=== PATIENT | female | born 1960 | race Hispanic/Latino ===

== ENCOUNTER 2020-08-13 13:51 | Inpatient (IN) | payer OTHER, SELFPAY ==
--- NOTE | 2020-08-13 15:46 | Emergency Department Report ---
HPI - General Chief Complaint: Dizziness Time Seen by Provider: 08/13/20 15:20 - HPI HPI: Room 20 The patient is a 60-year-old female present with a chief complaint of dizziness. The patient states she was just sitting down when she began to feel dizzy and had blurred vision. The patient states she tried to take a nap and woke up and felt slightly better. EMS was called after the patient had a near syncopal episode at a [employer]. Per EMS the patient was satting 82% on room air and was hypotensive. Patient was placed 100% nonrebreather and now states she feels all right. Patient denied ever having shortness of breath or pain of any type. Patient denies fever or cough. ED Past Medical Hx - Past Medical History Hx Hypertension: Yes Additional medical history: lymphedema - Surgical History Additional Surgical History: graft R leg - Family History Family history: no significant - Social History Smoking Status: Never Smoker Substance Use Type: None (Denies illicit drug use) ED Review of Systems ROS: Stated complaint: SOB Other details as noted in HPI Constitutional: no symptoms reported Eyes: denies: eye pain ENT: denies: throat pain Respiratory: no symptoms reported Cardiovascular: denies: chest pain Endocrine: no symptoms reported Gastrointestinal: denies: abdominal pain Genitourinary: denies: dysuria Musculoskeletal: denies: back pain Neurological: denies: headache Physical Exam - Physical Exam Vital Signs: Vital Signs 08/13/20 08/13/20 14:06 14:24 Temperature 97.4 F L 99.0 F Pulse Rate 102 H 102 H Respiratory 32 H 20 Rate Blood Pressure 120/74 Blood Pressure 116/68 [Right] O2 Sat by Pulse 100 98 Oximetry Physical Exam: GENERAL: The patient is well-developed well-nourished female lying on stretcher appearing fatigued. [] HEENT: Normocephalic. Atraumatic. Extraocular motions are intact. Patient has moist mucous membranes. NECK: Supple. Trachea midline CHEST/LUNGS: Clear to auscultation. There is no respiratory distress noted. HEART/CARDIOVASCULAR: Regular. There is no tachycardia. There is no gallop rub or murmur. ABDOMEN: Abdomen is soft, nontender. Patient has normal bowel sounds. There is no abdominal distention. SKIN: There is no rash. There is no edema. There is no diaphoresis. NEURO: The patient is awake but appears lethargic. The patient is cooperative. The patient has normal speech MUSCULOSKELETAL: There is no evidence of acute injury. ED Course Vital Signs 08/13/20 08/13/20 14:06 14:24 Temperature 97.4 F L 99.0 F Pulse Rate 102 H 102 H Respiratory 32 H 20 Rate Blood Pressure 120/74 Blood Pressure 116/68 [Right] O2 Sat by Pulse 100 98 Oximetry - Consultations Consultation #1: 08/13/20 18:45 Vascular surgery paged 08/13/20 19:[address] Lovell-states cannot lyse if there is a thrombus in the left ventricle. Recommends stat echocardiogram to evaluate for left ventricle mural thrombus Consultation #2: 08/13/20 19:20 Cardiology paged 08/13/20 19:[address] Chandler- states unable to perform stat echo. ED Medical Decision Making - Lab Data Result diagrams: 08/13/20 16:30 08/13/20 18:02 - Radiology Data Radiology results: report reviewed (Chest x-ray), image reviewed (Chest x-ray) interpreted by me: Chest [id number]. No definite focal infiltrates. No pneumothorax [facility] [address] [place] [address] XRay Report Signed Patient: GELY DORAN MR#: [id number] 0 : 1960 Acct:[id number] Age/Sex: 60 / F ADM Date: 08/13/20 Loc: ED Attending Dr: Ordering Physician: GURINDER DUMONT MD Date of Service: 08/13/20 Procedure(s): XR chest 1V ap Accession Number(s): [id number] cc: GURINDER DUMONT MD Fluoro Time In Minutes: CHEST 1 VIEW INDICATION / CLINICAL INFORMATION: Hypoxia. COMPARISON: None available. FINDINGS: SUPPORT DEVICES: None. HEART / MEDIASTINUM: Enlarged cardiac silhouette LUNGS / PLEURA: Central pulmonary vascular congestion is noted. Mild bilateral perihilar pulmonary edema. No pneumothorax or pleural effusion. ADDITIONAL FINDINGS: No significant additional findings. IMPRESSION: 1. Findings consistent with congestive heart failure and mild bilateral perihilar pulmonary edema. Signer Name: Pio Ha MD Signed: 08/13/2020 4:22 PM Workstation Name: [id number] Transcribed By: Dictated By: PIO HA Electronically Authenticated By: PIO HA Signed Date/Time: 08/13/201621 DD/ 20 TD/TT: - Differential Diagnosis Pneumonia, CHF, PE, Critical care attestation.: If time is entered above; I have spent that time in minutes in the direct care of this critically ill patient, excluding procedure time. ED Disposition Clinical Impression: Saddle pulmonary embolus, Multiple pulmonary emboli, Hypoxia Disposition: OP ADMIT IP TO THIS HOSP Is pt being admited?: Yes Does the pt Need Aspirin: No Condition: Serious Referrals: PRIMARY CARE,MD [Primary Care Provider] - 3-5 Days Time of Disposition: 19:47 (Hospitalist paged (Dr. Hernández))
[2020-08-13 16:16] LABS: ABG Base Excess 0.6 mmol/L (-2.0-3.0); ABG HCO3 25.3 mmol/L (20.0-26.0); ABG Methemoglobin 0.6 % (0.0-1.5); ABG Oxygen Saturation 81.5 % (95.0-99.0); ABG PCO2 40.7 mm Hg; ABG PH 7.411 pH Units (7.350-7.450); ABG PO2 43.5 mm Hg (80.0-90.0)
--- NOTE | 2020-08-13 16:26 | XRay Report ---
CHEST 1 VIEW INDICATION / CLINICAL INFORMATION: Hypoxia. COMPARISON: None available. FINDINGS: SUPPORT DEVICES: None. HEART / MEDIASTINUM: Enlarged cardiac silhouette LUNGS / PLEURA: Central pulmonary vascular congestion is noted. Mild bilateral perihilar pulmonary ed vane. No pneumothorax or pleural effusion. ADDITIONAL FINDINGS: No significant additional findings. IMPRESSION: 1. Findings consistent with congestive heart failure and mild bilateral perihilar pulmonary edema. Signer Name: Pio Duffy MD Signed: 08/13/2020 4:22 PM Workstation Name: [id number]
[2020-08-13 17:07] LABS: Basophils % (Auto) 0.3 % (0.0-1.8); Eosinophils % (Auto) 0.3 % (0.0-4.3); Hematocrit 37.3 % (30.3-42.9); Hemoglobin 12.1 gm/dl (10.1-14.3); Lymphocytes # (Auto) 2.3 K/mm3 (1.2-5.4); Lymphocytes % (Auto) 17.3 % (13.4-35.0); Mean Corpuscular HGB Conc 32 % (30-34); Mean Corpuscular Volume 89 fl (79-97); Monocytes # (Auto) 0.7 K/mm3 (0.0-0.8); Monocytes % (Auto) 5.3 % (0.0-7.3); Red Blood Count 4.18 M/mm3 (3.65-5.03); Red Cell Distribution Width 16.5 % (13.2-15.2)
[2020-08-13 17:12] LABS: Platelet Count 256 K/mm3 (140-440)
[2020-08-13 17:34] LABS: Alanine Aminotransferase 10 units/L (7-56); Albumin 3.6 g/dL (3.9-5); BUN/Creatinine Ratio 23; Blood Urea Nitrogen 21 mg/dL (7-17); Calcium 9.2 mg/dL (8.4-10.2); Hemolysis Index 167
[2020-08-13 17:52] LABS: Creatine Kinase MB 3.6 ng/mL (0.0-4.0)
--- NOTE | 2020-08-13 18:54 | Cat Scan Report ---
CT angio chest INDICATION: Hypoxia, dizziness. TECHNIQUE: All CT scans at this location are performed using CT dose reduction for ALARA by means of automated e xposure control. COMPARISON: None available. FINDINGS: No appreciable mediastinal, hilar or axillary adenopathy. No pleural fluid. No acute parenchymal dise ase. There are large filling defects in both main pulmonary arteries and their branches, consistent with e xtensive pulmonary emboli. In addition, there is a "saddle embolus" in the main pulmonary artery, dra saunders over the bifurcation. Contrast filled lumen of the left ventricle appears unusually small, with marked thickening of the ve ntricular "wall". Appearance is worrisome for mural thrombus in the left ventricle. IMPRESSION: 1. . Extensive pulmonary emboli, including a saddle embolus. 2. Questionable mural thrombus in the left ventricle. Echocardiogram may be helpful. This is a positive critical finding, noted at 1745 hours. Findings were discussed with Dr. Nixon in [facility] ER at 1748 hours. Signer Name: Rj Marie MD Signed: 08/13/2020 6:50 PM Workstation Name: [id number]
[2020-08-13] MEDS ORDERED: HEPARIN 10,000 UNITS/10 ML VIAL IV ONE (18:55)
[2020-08-13] MEDS: HEPARIN/ 0.45% NACL DRIP 25,000 UNIT/500 ML BAG IV SCH (19:53)
[2020-08-13] MEDS ORDERED: oxyCODONE /ACETAMINOPHEN 5-325MG TAB PO PRN (19:56)
[2020-08-13] MEDS ORDERED: ALBUTEROL 2.5 MG/3 ML NEBU IH PRN (19:56)
[2020-08-13] MEDS ORDERED: MORPHINE 2 MG/1 ML INJ IV PRN (19:56)
--- NOTE | 2020-08-13 19:56 | History and Physical Report ---
History of Present Illness Chief complaint: I got dizzy and short of breath and passed out History of present illness: 60 YO Female with Obesity Hypoventilation Syndrome, HTN, Lymphedema,Homelessness presents to ED for evaluation. Patient states that she was in her usual state of health and experienced shortness of breath while shopping and [employer]. Patient states that she felt a sudden onset of shortness of breath and dizziness. Patient subsequently lost consciousness. At [facility] witnessed the episode and notified EMS. EMS was notified and upon arrival the patient was found to be in distress with a pulse oximetry of 82%. The patient was also hypotensive with a systolic blood pressure in the 80s. Patient was placed on submental oxygen and transported to [facility] for further care and evaluation of the aforementioned symptoms. Patient seen and evaluated in the emergency department. All lab and imaging studies reviewed. Patient found to have bilateral pulmonary embolus complicated by acute hypoxemic respiratory failure, sepsis, acidosis. Patient initiated on therapeutic anticoagulation and admitted to [facility] due to increased risk of pulmonary decompensation. Vascular surgery team consulted in the emergency department. Cardiology team consulted in the emergency department. Echocardiogram is ordered and is pending at the time of admission. Patient denies fever, chills, chest pain, palpitation, productive cough, skin rash, recent ill contacts, or known exposure to COVID-19. No prior admission for review. No medication listed at time of admission for reconciliation. Past History Past Medical History: hypertension, other (See HPI) Past Surgical History: Other (Right leg graft) Social history: . denies: smoking, alcohol abuse, prescription drug abuse Family history: no significant family history (Reviewed) Medications and Allergies Allergies Allergy/AdvReac Type Severity Reaction Status Date / Time codeine AdvReac Nausea Verified 08/13/20 14:09 Active Meds: Active Medications Heparin Sodium/Sodium Chloride (Heparin/ 0.45% Nacl-25,000 Unit/500 Ml) 25,000 unit in 500 mls @ 30 mls/hr IV TITR ZIGGY; Protocol Review of Systems Constitutional: no weight loss, no weight gain, no fever, no chills Ears, nose, mouth and throat: no ear pain, no ear discharge, no decreased hearing, no nose pain, no nasal congestion Cardiovascular: shortness of breath, no chest pain, no orthopnea, no palpitations, no rapid/irregular heart beat Respiratory: shortness of breath, no cough with sputum, no excessive sputum Gastrointestinal: no abdominal pain, no nausea, no vomiting, no diarrhea, no change in bowel habits Genitourinary Female: no pelvic pain, no flank pain, no menorrhagia, no stress incontinence Rectal: no pain, no incontinence, no bleeding Musculoskeletal: no neck stiffness, no neck pain, no shooting arm pain, no arm numbness/tingling, no low back pain, no shooting leg pain Integumentary: no rash, no pruritis, no redness, no sores, no wounds Neurological: no transient paralysis, no paralysis, no weakness, no numbness, no tingling Psychiatric: no anxiety, no sleep disturbances, no change in libido Endocrine: no cold intolerance, no polyphagia, no excessive thirst, no polydipsia, no excessive sweating Hematologic/Lymphatic: no easy bruising, no easy bleeding, no lymphadenopathy Allergic/Immunologic: no urticaria, no wheezing, no persistent infections Exam - Constitutional Vitals: Temp Pulse Resp BP Pulse Ox 99.0 F 91 H 25 H 118/56 100 08/13/20 14:24 08/13/20 18:45 08/13/20 18:45 08/13/20 18:45 08/13/20 18:45 General appearance: Present: mild distress - EENT Eyes: Present: PERRL ENT: hearing intact, clear oral mucosa - Neck Neck: Present: supple, normal ROM - Respiratory Respiratory effort: normal Respiratory: bilateral: diminished, rhonchi - Cardiovascular Heart Sounds: Present: S1 & S2. Absent: rub, click - Extremities Extremities: pulses symmetrical, No edema Peripheral Pulses: within normal limits - Abdominal General gastrointestinal: Present: soft, non-tender, non-distended, normal bowel sounds Female genitourinary: Present: normal - Integumentary Integumentary: Present: clear, warm, dry - Musculoskeletal Musculoskeletal: gait normal, strength equal bilaterally - Psychiatric Psychiatric: appropriate mood/affect, intact judgment & insight - Neurologic Neurologic: CNII-XII intact, moves all extremities HEART Score - HEART Score Troponin: Troponin T < 0.010 ng/mL (0.00-0.029) 08/13/20 16:30 Results - Labs CBC & Chem 7: 08/13/20 19:46 10/01/20 18:02 Labs: Abnormal lab results 08/13/20 08/13/20 08/13/20 Range/Units 15:59 16:30 16:30 WBC 13.2 H (4.5-11.0) K/mm3 RDW 16.5 H (13.2-15.2) % Seg Neutrophils % 76.8 H (40.0-70.0) % Seg Neutrophils # 10.1 H (1.8-7.7) K/mm3 D-Dimer 8917.50 H (0-234) ng/mlDDU ABG pO2 43.5 L (80.0-90.0) mm Hg ABG O2 Saturation 81.5 L (95.0-99.0) % Oxyhemoglobin 80.1 L (95.0-99.0) % Potassium (3.6-5.0) mmol/L Carbon Dioxide (22-30) mmol/L BUN (7-17) mg/dL Glucose (65-100) mg/dL Albumin (3.9-5) g/dL 08/13/20 Range/Units 16:30 WBC (4.5-11.0) K/mm3 RDW (13.2-15.2) % Seg Neutrophils % (40.0-70.0) % Seg Neutrophils # (1.8-7.7) K/mm3 D-Dimer (0-234) ng/mlDDU ABG pO2 (80.0-90.0) mm Hg ABG O2 Saturation (95.0-99.0) % Oxyhemoglobin (95.0-99.0) % Potassium 5.7 H (3.6-5.0) mmol/L Carbon Dioxide 18 L (22-30) mmol/L BUN 21 H (7-17) mg/dL Glucose 103 H (65-100) mg/dL Albumin 3.6 L (3.9-5) g/dL Assessment and Plan - Patient Problems (1) Sepsis Current Visit: Yes Status: Acute Plan to address problem: Sepsis protocol: CBC, CMP, chest x-ray, urinalysis, IV fluid resuscitation therapy, monitor blood pressure every shift, maintain mean arterial pressure greater than or equal to 65, blood culture, empiric IV antibiotic therapy, serial lactic acid level. (2) Acute hypoxemic respiratory failure Current Visit: Yes Status: Acute Plan to address problem: Supplemental oxygen, CT chest, pulse oximetry, nebulizer therapy, noninvasive positive pressure ventilation as clinically indicated. Treatment saddle pulmonary embolism. (3) Metabolic acidosis Current Visit: Yes Status: Acute Plan to address problem: BMP, IV fluid resuscitation therapy, IV bicarbonate therapy, repeat BMP in a.m. (4) Obesity hypoventilation syndrome Current Visit: Yes Status: Acute Plan to address problem: Balanced diet, increase physical activity at discharge, outpatient bariatric surgery consultation. Outpatient pulmonary consultation for sleep study. (5) Saddle pulmonary embolus Current Visit: Yes Status: Acute Qualifiers: Chronicity: acute Acute cor pulmonale presence: without acute cor pulmonale Qualified Code(s): I26.92 - Saddle embolus of pulmonary artery without acute cor pulmonale Plan to address problem: Echocardiogram ordered and is pending at the time of admission, therapeutic anticoagulation, CTA chest, supplemental oxygen, pulse oximetry, supportive care. Vascular surgery service consulted further care as per vascular surgery team. (6) DVT prophylaxis Current Visit: Yes Status: Acute Plan to address problem: SCD to bilateral lower extremities while in bed, continue therapeutic anti coagulation. (7) Advance care planning Current Visit: Yes Status: Acute Plan to address problem: Disease education conducted, patient is full code, prognosis discussed, patient knowledges understanding and agreement with care plan, +30 minutes.
[2020-08-13] MEDS ORDERED: SODIUM BICARB 8.4% 50 MEQ/50 ML SYRINGE IV ONE ×2 (20:08→20:25)
[2020-08-13 20:10] LABS: Hematocrit 35.4 % (30.3-42.9); Hemoglobin 11.5 gm/dl (10.1-14.3)
[2020-08-13 20:22] LABS: INR 1.12 (0.87-1.13)
[2020-08-13 20:23] LABS: Partial Thromboplastin Time 30.2 Sec. (24.2-36.6)
[2020-08-13] MEDS ORDERED: ACETAMINOPHEN 325 MG TAB PO PRN (20:25)
[2020-08-13] MEDS ORDERED: SODIUM CHLORIDE 0.9% 1000 ML IV SOLN IV ONE (20:25)
[2020-08-13] MEDS ORDERED: HYDROmorphone 1 MG/1 ML INJ IV PRN (20:25)
--- NOTE | 2020-08-13 21:58 | Consultation ---
History of Present Illness - Reason for Consult Consult date: 08/13/20 Saddle Embolus Requesting physician: GURINDER DUMONT - History of Present Illness The patient is a 60-year-old female with a history of bilateral lower extremity lymphedema who states she was recently hospitalized at [place], for approximately 2 weeks, for management of dehydration and treatment of her lymphedema. She states she had a biologic skin graft placed on her right lower extremity during the hospitalization. After discharge she states she had been doing fairly well at home until 2 days ago when she was reaching for something in her wheelchair and states she fell and hit her head. She denies losing consciousness and did not think anything of it until the following day when she began experiencing nausea and dizziness. She thought she was just dehydrated so she drank fluids and took a nap, outside of the [employer] where she states she sat in the sun to get warm, however upon awaking she was still dizzy and started to experience blurry vision so EMS was called. Upon arrival to [facility] emergency department her oxygen saturations were in the low 80s. Her work-up included a d-dimer which was elevated in the [address] scan which revealed submassive bilateral pulmonary emboli with a saddle pulmonary embolus. In addition to the pulmonary embolus there was a suggestion of possible thrombus in the left ventricle. At this time she is on a heparin drip and feels somewhat better with her breathing. She denies any history of hemoptysis or hematemesis. She also denies any history of melena or bright red blood per rectum. She has no additional complaints at this time. Past History Past Medical History: hypertension, other (Bilateral lower extremity lymphedema) Past Surgical History: Other (Right lower extremity skin graft) Social history: . denies: smoking, alcohol abuse, prescription drug abuse Family history: no significant family history (Reviewed) Medications and Allergies Allergies Allergy/AdvReac Type Severity Reaction Status Date / Time codeine AdvReac Nausea Verified 08/13/20 14:09 Home Medications Medication Instructions Recorded Confirmed Last Taken Type No Known Home Medications [No 08/13/20 08/13/20 Unknown History Reported Home Medications] Active Meds: Active Medications Acetaminophen (Tylenol) 650 mg PO Q6H PRN PRN Reason: Pain, Mild (1-3) Albuterol (Proventil) 2.5 mg IH Q3HRT PRN PRN Reason: Shortness Of Breath Hydromorphone HCl (Dilaudid) 0.25 mg IV Q4H PRN PRN Reason: Pain, Moderate (4-6) Heparin Sodium/Sodium Chloride (Heparin/ 0.45% Nacl-25,000 Unit/500 Ml) 25,000 unit in 500 mls @ 30 mls/hr IV TITR ZIGGY; Protocol Last Admin: 08/13/20 19:53 Dose: 1,500 units/hr, 30 mls/hr Documented by: Cefepime HCl (Cefepime/Ns 2 Gm/100 Ml) 2 gm in 100 mls @ 200 mls/hr IV Q12HR ZIGGY; Protocol Morphine Sulfate (Morphine) 2 mg IV Q4H PRN PRN Reason: Pain , Severe (7-10) Oxycodone/Acetaminophen (Percocet 5/325) 1 tab PO Q6H PRN PRN Reason: Pain, Moderate (4-6) Sodium Chloride (Sodium Chloride Flush Syringe 10 Ml) 10 ml IV BID ZIGGY Sodium Chloride (Sodium Chloride Flush Syringe 10 Ml) 10 ml IV PRN PRN PRN Reason: LINE FLUSH Review of Systems All systems: negative Exam - Constitutional Vitals: Temp Pulse Resp BP Pulse Ox 99.0 F 86 20 118/56 100 08/13/20 14:24 08/13/20 20:45 08/13/20 20:45 08/13/20 20:45 08/13/20 20:45 General appearance: Present: no acute distress - Neck Neck: Present: supple - Respiratory Respiratory effort: normal - Cardiovascular Heart rate: 94 Rhythm: regular - Extremities Extremities: pulses intact (Bilateral dorsalis pedis pulses are intact), pulses symmetrical, normal temperature, abnormal (Massive bilateral lower extremity lymphedema. The patient had Tommy bandages on bilateral ankles that were removed and no wounds were identified.) - Abdominal General gastrointestinal: Present: soft, non-tender, non-distended Female genitourinary: Present: deferred - Rectal Rectal Exam: deferred - Integumentary Integumentary: Present: clear - Psychiatric Psychiatric: appropriate mood/affect, cooperative - Neurologic Neurologic: no focal deficits Results - Labs CBC & Chem 7: 08/14/20 02:45 08/14/20 02:45 Labs: Abnormal lab results 08/13/20 08/13/20 08/13/20 Range/Units 15:59 16:30 16:30 WBC 13.2 H (4.5-11.0) K/mm3 RDW 16.5 H (13.2-15.2) % Seg Neutrophils % 76.8 H (40.0-70.0) % Seg Neutrophils # 10.1 H (1.8-7.7) K/mm3 D-Dimer 8917.50 H (0-234) ng/mlDDU ABG pO2 43.5 L (80.0-90.0) mm Hg ABG O2 Saturation 81.5 L (95.0-99.0) % Oxyhemoglobin 80.1 L (95.0-99.0) % Potassium (3.6-5.0) mmol/L Carbon Dioxide (22-30) mmol/L BUN (7-17) mg/dL Glucose (65-100) mg/dL Albumin (3.9-5) g/dL 08/13/20 Range/Units 16:30 WBC (4.5-11.0) K/mm3 RDW (13.2-15.2) % Seg Neutrophils % (40.0-70.0) % Seg Neutrophils # (1.8-7.7) K/mm3 D-Dimer (0-234) ng/mlDDU ABG pO2 (80.0-90.0) mm Hg ABG O2 Saturation (95.0-99.0) % Oxyhemoglobin (95.0-99.0) % Potassium 5.7 H (3.6-5.0) mmol/L Carbon Dioxide 18 L (22-30) mmol/L BUN 21 H (7-17) mg/dL Glucose 103 H (65-100) mg/dL Albumin 3.6 L (3.9-5) g/dL - Imaging and Cardiology Chest x-ray: image reviewed CT scan - chest: image reviewed Assessment and Plan The patient is a 60-year-old female who presented with dizziness and was found to have bilateral submassive pulmonary emboli with saddle pulmonary embolus. There is a suggestion of possible thrombus in the left ventricle on the CT scan. The patient does not report a known history of a PFO or VSD. At this time the patient is stable and if she does have left ventricular thrombus that would be a contraindication to thrombolytic therapy as this would lyse the thrombus in the left ventricle and potentially shower the thrombus into her cerebral system, visceral arteries or lower extremities. Additionally using devices such as the FlowTriever to mechanically aspirate the thrombus, although eliminating the risk of thrombolytics, has risk of dislodging thrombus into the left heart if there is truly a right to left shunt. The patient requires an ECHO to rule out a PFO or VSD prior to proceeding with intervention. If the patient does have a defect with a right to left shunt and there is thrombus within the left ventricle she will likely require transfer to a tertiary center for intervention as this will require a higher level of care to deal with the left ventricular thrombus in addition to the pulmonary artery thrombus. For now the patient is stable and can be maintained on a heparin drip until she has an ECHO to determine if she truly has a septal defect. The patient will also require a CT of her head prior to proceeding with thrombolytic therapy given the history of falling and hitting her head 2 days ago. I discussed this with the patient who has expressed understanding and agrees with the plan.
[2020-08-13] MEDS ORDERED: CEFEPIME/NS 2 GM/100 ML 2 GM/100 ML BAG IV ONE (22:09)
[2020-08-13] MEDS ORDERED: SODIUM CHLORIDE 0.9% 1000 ML 1,000 ML ONE ×2 (22:09→23:49)
[2020-08-13] MEDS: CEFEPIME/NS 2 GM/100 ML 2 GM/100 ML BAG IV SCH (22:10)
[2020-08-14 02:55] LABS: Basophils # (Auto) 0.1 K/mm3 (0.0-0.1); Basophils % (Auto) 0.7 % (0.0-1.8); Eosinophils # (Auto) 0.2 K/mm3 (0.0-0.4); Eosinophils % (Auto) 1.7 % (0.0-4.3); Hemoglobin 10.5 gm/dl (10.1-14.3); Lymphocytes # (Auto) 3.9 K/mm3 (1.2-5.4); Lymphocytes % (Auto) 42.2 % (13.4-35.0); Mean Corpuscular HGB Conc 33 % (30-34); Mean Corpuscular Volume 88 fl (79-97); Monocytes # (Auto) 0.7 K/mm3 (0.0-0.8); Monocytes % (Auto) 7.4 % (0.0-7.3); Platelet Count 238 K/mm3 (140-440); Red Blood Count 3.63 M/mm3 (3.65-5.03); Red Cell Distribution Width 16.2 % (13.2-15.2)
[2020-08-14 03:19] LABS: BUN/Creatinine Ratio 35; Blood Urea Nitrogen 21 mg/dL (7-17); Calcium 8.6 mg/dL (8.4-10.2); Hemolysis Index 5
--- NOTE | 2020-08-14 09:35 | Progress Note ---
Assessment and Plan Assessment and plan: 60 YO Female with Obesity Hypoventilation Syndrome, HTN, Lymphedema,Homelessness presents to ED for evaluation. Patient states that she was in her usual state of health and experienced shortness of breath while shopping and [employer]. Patient states that she felt a sudden onset of shortness of breath and dizziness. Patient subsequently lost consciousness. At [facility] witnessed the episode and notified EMS. EMS was notified and upon arrival the patient was found to be in distress with a pulse oximetry of 82%. The patient was also hypotensive with a systolic blood pressure in the 80s. Patient was placed on submental oxygen and transported to [facility] for further care and evaluation of the aforementioned symptoms. Patient seen and evaluated in the emergency department. All lab and imaging studies reviewed. Patient found to have bilateral pulmonary embolus complicated by acute hypoxemic respiratory failure, sepsis, acidosis. Patient initiated on therapeutic anticoagulation and admitted to [facility] due to increased risk of pulmonary decompensation. Vascular surgery team consulted in the emergency department. Cardiology team consulted in the emergency department. Echocardiogram is ordered and is pending at the time of admission. Patient denies fever, chills, chest pain, palpitation, productive cough, skin rash, recent ill contacts, or known exposure to COVID-19. No prior admission for review. No medication listed at time of admission for reconciliation. R/O COVID19 Await Records from [facility] Continue Full dose Anticoagulation (1) Sepsis Current Visit: Yes Status: Acute Plan to address problem: Sepsis protocol: CBC, CMP, chest x-ray, urinalysis, IV fluid resuscitation therapy, monitor blood pressure every shift, maintain mean arterial pressure greater than or equal to 65, blood culture, empiric IV antibiotic therapy, serial lactic acid level. (2) Acute hypoxemic respiratory failure Current Visit: Yes Status: Acute Plan to address problem: Supplemental oxygen, CT chest, pulse oximetry, nebulizer therapy, noninvasive positive pressure ventilation as clinically indicated. Treatment saddle pulmonary embolism. (3) Metabolic acidosis Current Visit: Yes Status: Acute Plan to address problem: BMP, IV fluid resuscitation therapy, IV bicarbonate therapy, repeat BMP in a.m. (4) Obesity hypoventilation syndrome Current Visit: Yes Status: Acute Plan to address problem: Balanced diet, increase physical activity at discharge, outpatient bariatric surgery consultation. Outpatient pulmonary consultation for sleep study. (5) Saddle pulmonary embolus Current Visit: Yes Status: Acute Qualifiers: Chronicity: acute Acute cor pulmonale presence: without acute cor pulmonale Qualified Code(s): I26.92 - Saddle embolus of pulmonary artery without acute cor pulmonale Plan to address problem: Echocardiogram ordered and is pending at the time of admission, therapeutic anticoagulation, CTA chest, supplemental oxygen, pulse oximetry, supportive care. Vascular surgery service consulted further care as per vascular surgery team. (6) DVT prophylaxis Current Visit: Yes Status: Acute Plan to address problem: SCD to bilateral lower extremities while in bed, continue therapeutic anticoagulation. (7) Advance care planning Current Visit: Yes Status: Acute Plan to address problem: Disease education conducted, patient is full code, prognosis discussed, patient knowledges understanding and agreement with care plan, +30 minutes. History Interval history: Patient seen and examined, resting comfortable, still reports exertional dyscomfort, Hospitalist Physical - Physical exam Narrative exam: General appearance: Present: Still with some distress, morbidly obese - EENT Eyes: Present: PERRL ENT: hearing intact, clear oral mucosa - Neck Neck: Present: supple, normal ROM - Respiratory Respiratory effort: normal Respiratory: bilateral: diminished, rhonchi - Cardiovascular Heart Sounds: Present: S1 & S2. Absent: rub, click - Extremities Extremities: pulses symmetrical, No edema Peripheral Pulses: within normal limits - Abdominal General gastrointestinal: Present: soft, non-tender, non-distended, normal bowel sounds Female genitourinary: Present: normal - Integumentary Integumentary: Present: warm. chronic Lymphedema, - Musculoskeletal Musculoskeletal: strength equal bilaterally, lethargic, gait not accessed. - Psychiatric Psychiatric: appropriate mood/affect, intact judgment & insight - Neurologic Neurologic: CNII-XII intact, moves all extremities - Constitutional Vitals: Temp Pulse Resp BP Pulse Ox 98.3 F 82 22 116/63 98 08/14/20 03:32 08/14/20 08:00 08/14/20 08:00 08/13/20 22:15 08/14/20 08:00 General appearance: Present: no acute distress HEART Score - HEART Score Troponin: Troponin T < 0.010 ng/mL (0.00-0.029) 08/13/20 16:30 Results - Labs CBC & Chem 7: 08/15/20 04:23 08/14/20 10:16 Labs: Laboratory Last Values WBC 9.2 K/mm3 (4.5-11.0) 08/14/20 02:45 RBC 3.63 M/mm3 (3.65-5.03) L 08/14/20 02:45 Hgb 10.5 gm/dl (10.1-14.3) 08/14/20 02:45 Hct 32.0 % (30.3-42.9) 08/14/20 02:45 MCV 88 fl (79-97) 08/14/20 02:45 MCH 29 pg (28-32) 08/14/20 02:45 MCHC 33 % (30-34) 08/14/20 02:45 RDW 16.2 % (13.2-15.2) H 08/14/20 02:45 Plt Count 238 K/mm3 (140-440) 08/14/20 02:45 Lymph % (Auto) 42.2 % (13.4-35.0) H 08/14/20 02:45 [place] % (Auto) 7.4 % (0.0-7.3) H 08/14/20 02:45 Eos % (Auto) 1.7 % (0.0-4.3) 08/14/20 02:45 Baso % (Auto) 0.7 % (0.0-1.8) 08/14/20 02:45 Lymph # (Auto) 3.9 K/mm3 (1.2-5.4) 08/14/20 02:45 [place] # (Auto) 0.7 K/mm3 (0.0-0.8) 08/14/20 02:45 Eos # (Auto) 0.2 K/mm3 (0.0-0.4) 08/14/20 02:45 Baso # (Auto) 0.1 K/mm3 (0.0-0.1) 08/14/20 02:45 Seg Neutrophils % 48.0 % (40.0-70.0) 08/14/20 02:45 Seg Neutrophils # 4.4 K/mm3 (1.8-7.7) 08/14/20 02:45 PT 14.6 Sec. (12.2-14.9) 08/13/20 19:45 INR 1.12 (0.87-1.13) 08/13/20 19:45 APTT 30.2 Sec. (24.2-36.6) 08/13/20 19:45 D-Dimer 8917.50 ng/mlDDU (0-234) H 08/13/20 16:30 Heparin Anti-Xa Level 0.10 U.I./ml (0.3-0.7) L 08/14/20 02:45 ABG pH 7.411 pH Units (7.350-7.450) 08/13/20 15:59 ABG pCO2 40.7 mm Hg 08/13/20 15:59 ABG pO2 43.5 mm Hg (80.0-90.0) L 08/13/20 15:59 ABG HCO3 25.3 mmol/L (20.0-26.0) 08/13/20 15:59 ABG O2 Saturation 81.5 % (95.0-99.0) L 08/13/20 15:59 ABG O2 Content 15.6 (0.0-44) 08/13/20 15:59 ABG Base Excess 0.6 mmol/L (-2.0-3.0) 08/13/20 15:59 ABG Hemoglobin 13.9 gm/dl (12.0-16.0) 08/13/20 15:59 ABG Carboxyhemoglobin 1.2 % (0.0-5.0) 08/13/20 15:59 ABG Methemoglobin 0.6 % (0.0-1.5) 08/13/20 15:59 Oxyhemoglobin 80.1 % (95.0-99.0) L 08/13/20 15:59 FiO2 25 % 08/13/20 15:59 Sodium 142 mmol/L (137-145) 08/14/20 02:45 Potassium 3.9 mmol/L (3.6-5.0) 08/14/20 02:45 Chloride 104.8 mmol/L (98-107) 08/14/20 02:45 Carbon Dioxide 25 mmol/L (22-30) D 08/14/20 02:45 Anion Gap 16 mmol/L 08/14/20 02:45 BUN 21 mg/dL (7-17) H 08/14/20 02:45 Creatinine 0.6 mg/dL (0.6-1.2) 08/14/20 02:45 Estimated GFR > 60 ml/min 08/14/20 02:45 BUN/Creatinine Ratio 35 % 08/14/20 02:45 Glucose 100 mg/dL (65-100) 08/14/20 02:45 Lactic Acid 0.80 mmol/L (0.7-2.0) 08/14/20 02:45 Calcium 8.6 mg/dL (8.4-10.2) 08/14/20 02:45 Total Bilirubin 0.50 mg/dL (0.1-1.2) 08/13/20 16:30 AST 29 units/L (5-40) 08/13/20 16:30 ALT 10 units/L (7-56) 08/13/20 16:30 Alkaline Phosphatase 86 units/L (35-129) 08/13/20 16:30 Total Creatine Kinase 95 units/L (30-135) 08/13/20 16:30 CK-MB (CK-2) 3.6 ng/mL (0.0-4.0) 08/13/20 16:30 CK-MB (CK-2) Rel Index 3.7 (0-4) 08/13/20 16:30 Troponin T < 0.010 ng/mL (0.00-0.029) 08/13/20 16:30 NT-Pro-B Natriuret Pep 685 pg/mL (0-900) 08/13/20 16:30 Total Protein 7.7 g/dL (6.3-8.2) 08/13/20 16:30 Albumin 3.6 g/dL (3.9-5) L 08/13/20 16:30 Albumin/Globulin Ratio 0.9 % 08/13/20 16:30 Duffy/IV: Voiding Method Bedpan IV Catheter Type [Right INT / Saline Lock Forearm] Active Medications - Current Medications Current Medications: Generic Name Dose Route Start Last Admin Trade Name Freq PRN Reason Stop Dose Admin Acetaminophen 650 mg 08/13/20 20:25 Tylenol PO Q6H PRN Pain, Mild (1-3) Albuterol 2.5 mg 08/13/20 19:56 Proventil IH Q3HRT PRN Shortness Of Breath Hydromorphone HCl 0.25 mg 08/13/20 20:25 Dilaudid IV Q4H PRN Pain, Moderate (4-6) Heparin Sodium/Sodium Chloride 25,000 unit in 500 mls @ 30 mls/hr 08/13/20 19:00 08/14/20 04:28 Heparin/ 0.45% Nacl-25,000 Unit/500 Ml IV 1,700 units/hr TITR ZIGGY 34 mls/hr Titration Protocol 1,500 UNITS/HR Cefepime HCl 2 gm in 100 mls @ 200 mls/hr 08/13/20 22:00 08/13/20 22:10 Cefepime/Ns 2 Gm/100 Ml IV 200 mls/hr Q12HR ZIGGY Administration Protocol Morphine Sulfate 2 mg 08/13/20 19:56 Morphine IV Q4H PRN Pain , Severe (7-10) Oxycodone/Acetaminophen 1 tab 08/13/20 19:56 Percocet 5/325 PO Q6H PRN Pain, Moderate (4-6) Sodium Chloride 10 ml 08/13/20 22:00 Sodium Chloride Flush Syringe 10 Ml IV BID ZIGGY Sodium Chloride 10 ml 08/13/20 19:56 Sodium Chloride Flush Syringe 10 Ml IV PRN PRN LINE FLUSH
[2020-08-14] MEDS: CEFEPIME/NS 2 GM/100 ML 2 GM/100 ML BAG IV SCH ×2 (10:07→22:37)
[2020-08-14 11:25] LABS: C-Reactive Protein 3.9 mg/dL (0.00-1.30)
--- NOTE | 2020-08-14 12:02 | Vascular Lab Report ---
DUPLEX DOPPLER LOWER EXTREMITY VEINS, BILATERAL INDICATION: DVT. Lymphedema TECHNIQUE: Duplex doppler imaging was performed through the veins of both lower extremities using ve nous compression and other maneuvers. COMPARISON: No relevant prior imaging study available. FINDINGS: Right Common femoral vein: Negative. Right Superficial femoral vein: Negative. Right Popliteal vein: Negative. Right Calf veins: Negative. Left Common femoral vein: Negative. Left Superficial femoral vein: Negative. Left Popliteal vein: Negative. Left Calf veins: Negative. Additional findings: Small bilateral popliteal cysts. Moderate atelectatic edema is also noted bilate rally.. IMPRESSION: No sonographic evidence for DVT in either lower extremity. Signer Name: Darryl Subramanian Jr, MD Signed: 08/14/2020 11:58 AM Workstation Name: [id number]
[2020-08-14] MEDS: HEPARIN/ 0.45% NACL DRIP 25,000 UNIT/500 ML BAG IV SCH (22:37)
[2020-08-15 05:52] LABS: Hematocrit 33.1 % (30.3-42.9); Hemoglobin 10.9 gm/dl (10.1-14.3)
[2020-08-15] MEDS: CEFEPIME/NS 2 GM/100 ML 2 GM/100 ML BAG IV SCH ×2 (10:04→22:59)
[2020-08-15] MEDS ORDERED: SODIUM CHLORIDE 0.9% 500 ML 500 ML ONE (12:00)
[2020-08-15] MEDS: HEPARIN/ 0.45% NACL DRIP 25,000 UNIT/500 ML BAG IV SCH (16:14)
[2020-08-16 04:46] LABS: Hemoglobin 10.4 gm/dl (10.1-14.3); Mean Corpuscular HGB Conc 33 % (30-34); Mean Corpuscular Volume 89 fl (79-97); Platelet Count 244 K/mm3 (140-440); Red Blood Count 3.59 M/mm3 (3.65-5.03); Red Cell Distribution Width 16.3 % (13.2-15.2)
[2020-08-16 05:11] LABS: Blood Urea Nitrogen 19 mg/dL (7-17); Calcium 8.3 mg/dL (8.4-10.2); Hemolysis Index 2
[2020-08-16 05:16] LABS: BUN/Creatinine Ratio 32
--- NOTE | 2020-08-16 08:18 | Progress Note ---
Assessment and Plan Assessment and plan: 60 YO Female with Obesity Hypoventilation Syndrome, HTN, Lymphedema,Homelessness presents to ED for evaluation. Patient states that she was in her usual state of health and experienced shortness of breath while shopping and [employer]. Patient states that she felt a sudden onset of shortness of breath and dizziness. Patient subsequently lost consciousness. At [facility] witnessed the episode and notified EMS. EMS was notified and upon arrival the patient was found to be in distress with a pulse oximetry of 82%. The patient was also hypotensive with a systolic blood pressure in the 80s. Patient was placed on submental oxygen and transported to [facility] for further care and evaluation of the aforementioned symptoms. Patient seen and evaluated in the emergency department. All lab and imaging studies reviewed. Patient found to have bilateral pulmonary embolus complicated by acute hypoxemic respiratory failure, sepsis, acidosis. Patient initiated on therapeutic anticoagulation and admitted to [facility] due to increased risk of pulmonary decompensation. Vascular surgery team consulted in the emergency department. Cardiology team consulted in the emergency department. Echocardiogram is ordered and is pending at the time of admission. Patient denies fever, chills, chest pain, palpitation, productive cough, skin rash, recent ill contacts, or known exposure to COVID-19. No prior admission for review. No medication listed at time of admission for reconciliation. R/O COVID19 Await Records from [facility] Continue Full dose Anticoagulation 08/15: Continues to improve, no bleeding noted, continues on Heparin, awaiting CT head and records from [place] [facility] [place]. (1) Sepsis Current Visit: Yes Status: Acute Plan to address problem: Sepsis protocol: CBC, CMP, chest x-ray, urinalysis, IV fluid resuscitation therapy, monitor blood pressure every shift, maintain mean arterial pressure greater than or equal to 65, blood culture, empiric IV antibiotic therapy, serial lactic acid level. (2) Acute hypoxemic respiratory failure Current Visit: Yes Status: Acute Plan to address problem: Supplemental oxygen, CT chest, pulse oximetry, nebulizer therapy, noninvasive positive pressure ventilation as clinically indicated. Treatment saddle pulmonary embolism. (3) Metabolic acidosis Current Visit: Yes Status: Acute Plan to address problem: BMP, IV fluid resuscitation therapy, IV bicarbonate therapy, repeat BMP in a.m. (4) Obesity hypoventilation syndrome Current Visit: Yes Status: Acute Plan to address problem: Balanced diet, increase physical activity at discharge, outpatient bariatric surgery consultation. Outpatient pulmonary consultation for sleep study. (5) Saddle pulmonary embolus Current Visit: Yes Status: Acute Qualifiers: Chronicity: acute Acute cor pulmonale presence: without acute cor pulmonale Qualified Code(s): I26.92 - Saddle embolus of pulmonary artery without acute cor pulmonale Plan to address problem: Echocardiogram ordered and is pending at the time of admission, therapeutic anticoagulation, CTA chest, supplemental oxygen, pulse oximetry, supportive car e. Vascular surgery service consulted further care as per vascular surgery team. (6) DVT prophylaxis Current Visit: Yes Status: Acute Plan to address problem: SCD to bilateral lower extremities while in bed, continue therapeutic anticoagulation. (7) Advance care planning Current Visit: Yes Status: Acute Plan to address problem: Disease education conducted, patient is full code, prognosis discussed, patient knowledges understanding and agreement with care plan, +30 minutes. The high probability of a clinically significant, sudden or life threatening deterioration of the [pulmonary] system(s) required my full and direct attention, intervention and personal management. The aggregate critical care ti me was [45] minutes. This time is in addition to time spent performing reported procedures but includes the following: [x] Data Review and interpretation [x] Patient assessment and monitoring of vital signs [x] Documentation [x] Medication orders and management History Interval history: Patient seen and examined, resting comfortable, still reports exertional dyscomfort, Hospitalist Physical - Physical exam Narrative exam: General appearance: Present: Still with some distress, morbidly obese - EENT Eyes: Present: PERRL ENT: hearing intact, clear oral mucosa - Neck Neck: Present: supple, normal ROM - Respiratory Respiratory effort: normal Respiratory: bilateral: diminished, rhonchi - Cardiovascular Heart Sounds: Present: S1 & S2. Absent: rub, click - Extremities Extremities: pulses symmetrical, No edema Peripheral Pulses: within normal limits - Abdominal General gastrointestinal: Present: soft, non-tender, non-distended, normal bowel sounds Female genitourinary: Present: normal - Integumentary Integumentary: Present: warm. chronic Lymphedema, - Musculoskeletal Musculoskeletal: strength equal bilaterally, lethargic, gait not accessed. - Psychiatric Psychiatric: appropriate mood/affect, intact judgment & insight - Neurologic Neurologic: CNII-XII intact, moves all extremities - Constitutional Vitals: Temp Pulse Resp BP Pulse Ox 98.8 F 65 21 149/86 99 08/16/20 04:00 08/16/20 07:30 08/16/20 07:30 08/16/20 07:30 08/16/20 07:30 General appearance: Present: no acute distress HEART Score - HEART Score Troponin: Troponin T < 0.010 ng/mL (0.00-0.029) 08/13/20 16:30 Results - Labs CBC & Chem 7: 08/16/20 04:24 08/16/20 04:24 Labs: Laboratory Last Values WBC 8.1 K/mm3 (4.5-11.0) 08/16/20 04:24 RBC 3.59 M/mm3 (3.65-5.03) L 08/16/20 04:24 Hgb 10.4 gm/dl (10.1-14.3) 08/16/20 04:24 Hct 32.0 % (30.3-42.9) 08/16/20 04:24 MCV 89 fl (79-97) 08/16/20 04:24 MCH 29 pg (28-32) 08/16/20 04:24 MCHC 33 % (30-34) 08/16/20 04:24 RDW 16.3 % (13.2-15.2) H 08/16/20 04:24 Plt Count 244 K/mm3 (140-440) 08/16/20 04:24 Lymph % (Auto) 42.2 % (13.4-35.0) H 08/14/20 02:45 [place] % (Auto) 7.4 % (0.0-7.3) H 08/14/20 02:45 Eos % (Auto) 1.7 % (0.0-4.3) 08/14/20 02:45 Baso % (Auto) 0.7 % (0.0-1.8) 08/14/20 02:45 Lymph # (Auto) 3.9 K/mm3 (1.2-5.4) 08/14/20 02:45 [place] # (Auto) 0.7 K/mm3 (0.0-0.8) 08/14/20 02:45 Eos # (Auto) 0.2 K/mm3 (0.0-0.4) 08/14/20 02:45 Baso # (Auto) 0.1 K/mm3 (0.0-0.1) 08/14/20 02:45 Seg Neutrophils % 48.0 % (40.0-70.0) 08/14/20 02:45 Seg Neutrophils # 4.4 K/mm3 (1.8-7.7) 08/14/20 02:45 PT 14.6 Sec. (12.2-14.9) 08/13/20 19:45 INR 1.12 (0.87-1.13) 08/13/20 19:45 APTT 30.2 Sec. (24.2-36.6) 08/13/20 19:45 D-Dimer 5255.25 ng/mlDDU (0-234) H 08/14/20 10:16 Heparin Anti-Xa Level 0.34 U.I./ml (0.3-0.7) 08/15/20 16:35 ABG pH 7.411 pH Units (7.350-7.450) 08/13/20 15:59 ABG pCO2 40.7 mm Hg 08/13/20 15:59 ABG pO2 43.5 mm Hg (80.0-90.0) L 08/13/20 15:59 ABG HCO3 25.3 mmol/L (20.0-26.0) 08/13/20 15:59 ABG O2 Saturation 81.5 % (95.0-99.0) L 08/13/20 15:59 ABG O2 Content 15.6 (0.0-44) 08/13/20 15:59 ABG Base Excess 0.6 mmol/L (-2.0-3.0) 08/13/20 15:59 ABG Hemoglobin 13.9 gm/dl (12.0-16.0) 08/13/20 15:59 ABG Carboxyhemoglobin 1.2 % (0.0-5.0) 08/13/20 15:59 ABG Methemoglobin 0.6 % (0.0-1.5) 08/13/20 15:59 Oxyhemoglobin 80.1 % (95.0-99.0) L 08/13/20 15:59 FiO2 25 % 08/13/20 15:59 Sodium 139 mmol/L (137-145) 08/16/20 04:24 Potassium 4.0 mmol/L (3.6-5.0) 08/16/20 04:24 Chloride 103.8 mmol/L (98-107) 08/16/20 04:24 Carbon Dioxide 23 mmol/L (22-30) 08/16/20 04:24 Anion Gap 16 mmol/L 08/16/20 04:24 BUN 19 mg/dL (7-17) H 08/16/20 04:24 Creatinine 0.6 mg/dL (0.6-1.2) 08/16/20 04:24 Estimated GFR > 60 ml/min 08/16/20 04:24 BUN/Creatinine Ratio 32 % 08/16/20 04:24 Glucose 98 mg/dL (65-100) 08/16/20 04:24 Lactic Acid 0.80 mmol/L (0.7-2.0) 08/14/20 02:45 Calcium 8.3 mg/dL (8.4-10.2) L 08/16/20 04:24 Ferritin 250.0 ng/mL (10.0-200.0) H 08/14/20 10:16 Total Bilirubin 0.50 mg/dL (0.1-1.2) 08/13/20 16:30 AST 29 units/L (5-40) 08/13/20 16:30 ALT 10 units/L (7-56) 08/13/20 16:30 Alkaline Phosphatase 86 units/L (35-129) 08/13/20 16:30 Lactate Dehydrogenase 255 units/L (91-180) H 08/14/20 10:16 Total Creatine Kinase 95 units/L (30-135) 08/13/20 16:30 CK-MB (CK-2) 3.6 ng/mL (0.0-4.0) 08/13/20 16:30 CK-MB (CK-2) Rel Index 3.7 (0-4) 08/13/20 16:30 Troponin T < 0.010 ng/mL (0.00-0.029) 08/13/20 16:30 C-Reactive Protein 3.90 mg/dL (0.00-1.30) H 08/14/20 10:16 NT-Pro-B Natriuret Pep 685 pg/mL (0-900) 08/13/20 16:30 Total Protein 7.7 g/dL (6.3-8.2) 08/13/20 16:30 Albumin 3.6 g/dL (3.9-5) L 08/13/20 16:30 Albumin/Globulin Ratio 0.9 % 08/13/20 16:30 Procalcitonin 0.10 ng/mL (<0.15) 08/14/20 10:16 Duffy/IV: Voiding Method External Female Catheter IV Catheter Type [Left Wrist] INT / Saline Lock IV Catheter Type [Right INT / Saline Lock Forearm] Active Medications - Current Medications Current Medications: Generic Name Dose Route Start Last Admin Trade Name Freq PRN Reason Stop Dose Admin Acetaminophen 650 mg 08/13/20 20:25 08/15/20 23:50 Tylenol PO 650 mg Q6H PRN Administration Pain, Mild (1-3) Albuterol 2.5 mg 08/13/20 19:56 Proventil IH Q3HRT PRN Shortness Of Breath Hydromorphone HCl 0.25 mg 08/13/20 20:25 Dilaudid IV Q4H PRN Pain, Moderate (4-6) Heparin Sodium/Sodium Chloride 25,000 unit in 500 mls @ 30 mls/hr 08/13/20 19:00 08/15/20 16:45 Heparin/ 0.45% Nacl-25,000 Unit/500 Ml IV 1,800 units/hr TITR ZIGGY 36 mls/hr Titration Protocol 1,500 UNITS/HR Cefepime HCl 2 gm in 100 mls @ 200 mls/hr 08/13/20 22:00 08/15/20 22:59 Cefepime/Ns 2 Gm/100 Ml IV 200 mls/hr Q12HR ZIGGY Administration Protocol Morphine Sulfate 2 mg 08/13/20 19:56 Morphine IV Q4H PRN Pain , Severe (7-10) Oxycodone/Acetaminophen 1 tab 08/13/20 19:56 Percocet 5/325 PO Q6H PRN Pain, Moderate (4-6) Sodium Chloride 10 ml 08/13/20 22:00 08/15/20 22:59 Sodium Chloride Flush Syringe 10 Ml IV 10 ml BID ZIGGY Administration Sodium Chloride 10 ml 08/13/20 19:56 Sodium Chloride Flush Syringe 10 Ml IV PRN PRN LINE FLUSH Nutrition/Malnutrition Assess - Dietary Evaluation Nutrition/Malnutrition Findings: Nutrition Notes Start: 08/15/20 10:31 Freq: Status: Active Protocol: Document 08/15/20 10:31 (Rec: 08/15/20 10:35 [id number]) Nutrition Notes 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 Pt reports no wt loss and questions about low sodium foods. Pt ate 100% of breakfast and has a great appetite. #1 Nutrition Diagnosis Food and nutrition-related knowledge deficit Etiology No prior diet edu As Evidenced by Signs and Symptoms pt had questions about low Na foods Nutrition Intervention Teaching Recipient Patient Learning Readiness Good Teaching Methods Discussion Barriers to Learning No Barriers RD phone number provided Yes Patient aware of follow up options Yes Rev[facility] per MD consult or patient Sign Off request:
--- NOTE | 2020-08-16 08:20 | Progress Note ---
Assessment and Plan Assessment and plan: 60 YO Female with Obesity Hypoventilation Syndrome, HTN, Lymphedema,Homelessness presents to ED for evaluation. Patient states that she was in her usual state of health and experienced shortness of breath while shopping and [employer]. Patient states that she felt a sudden onset of shortness of breath and dizziness. Patient subsequently lost consciousness. At [facility] witnessed the episode and notified EMS. EMS was notified and upon arrival the patient was found to be in distress with a pulse oximetry of 82%. The patient was also hypotensive with a systolic blood pressure in the 80s. Patient was placed on submental oxygen and transported to [facility] for further care and evaluation of the aforementioned symptoms. Patient seen and evaluated in the emergency department. All lab and imaging studies reviewed. Patient found to have bilateral pulmonary embolus complicated by acute hypoxemic respiratory failure, sepsis, acidosis. Patient initiated on therapeutic anticoagulation and admitted to [facility] due to increased risk of pulmonary decompensation. Vascular surgery team consulted in the emergency department. Cardiology team consulted in the emergency department. Echocardiogram is ordered and is pending at the time of admission. Patient denies fever, chills, chest pain, palpitation, productive cough, skin rash, recent ill contacts, or known exposure to COVID-19. No prior admission for review. No medication listed at time of admission for reconciliation. R/O COVID19 Await Records from [facility] Continue Full dose Anticoagulation 08/15: Continues to improve, no bleeding noted, continues on Heparin, awaiting CT head and records from [place] [facility] [place]. 08/16: ct head pending, per vascular on initial review "the patient is stable and if she does have left ventricular thrombus that would be a contraindication to thrombolytic therapy as this would lyse the thrombus in the left ventricle and potentially shower the thrombus into her cerebral system, visceral arteries or lower extremities"..... The patient requires an ECHO to rule out a PFO or VSD prior to proceeding with intervention. If the patient does have a defect with a right to left shunt and there is thrombus within the left ventricle she will likely require transfer to a tertiary center for intervention as this will require a higher level of care to deal with the left ventricular thrombus in addition to the pulmonary artery thrombus. For now the patient is stable and can be maintained on a heparin drip until she has an ECHO to determine if she truly has a septal defect. The patient will also require a CT of her head prior to proceeding with thrombolytic therapy given the history of falling and hitting her head 2 days ago. (1) Sepsis Current Visit: Yes Status: Acute Plan to address problem: Sepsis protocol: CBC, CMP, chest x-ray, urinalysis, IV fluid resuscitation therapy, monitor blood pressure every shift, maintain mean arterial pressure greater than or equal to 65, blood culture, empiric IV antibiotic therapy, serial lactic acid level. (2) Acute hypoxemic respiratory failure Current Visit: Yes Status: Acute Plan to address problem: Supplemental oxygen, CT chest, pulse oximetry, nebulizer therapy, noninvasive positive pressure ventilation as clinically indicated. Treatment saddle pulmonary embolism. (3) Metabolic acidosis Current Visit: Yes Status: Acute Plan to address problem: BMP, IV fluid resuscitation therapy, IV bicarbonate therapy, repeat BMP in a.m. (4) Obesity hypoventilation syndrome Current Visit: Yes Status: Acute Plan to address problem: Balanced diet, increase physical activity at discharge, outpatient bariatric surgery consultation. Outpatient pulmonary consultation for sleep study. (5) Saddle pulmonary embolus Current Visit: Yes Status: Acute Qualifiers: Chronicity: acute Acute cor pulmonale presence: without acute cor pulmonale Qualified Code(s): I26.92 - Saddle embolus of pulmonary artery without acute cor pulmonale Plan to address problem: Echocardiogram ordered and is pending at the time of admission, therapeutic anticoagulation, CTA chest, supplemental oxygen, pulse oximetry, supportive care. Vascular surgery service consulted further care as per vascular surgery team. (6) DVT prophylaxis Current Visit: Yes Status: Acute Plan to address problem: SCD to bilateral lower extremities while in bed, continue therapeutic a nticoagulation. (7) Advance care planning Current Visit: Yes Status: Acute Plan to address problem: Disease education conducted, patient is full code, prognosis discussed, patient knowledges understanding and agreement with care plan, +30 minutes. The high probability of a clinically significant, sudden or life threatening deterioration of the [pulmonary] system(s) required my full and direct attent ion, intervention and personal management. The aggregate critical care time was [45] minutes. This time is in addition to time spent performing reported procedures but includes the following: [x] Data Review and interpretation [x] Patient assessment and monitoring of vital signs [x] Documentation [x] Medication orders and management History Interval history: Patient seen and examined, resting comfortable, still reports exertional dyscomfort, refusing head ct at this time Hospitalist Physical - Physical exam Narrative exam: General appearance: Present: Still with some distress, morbidly obese - EENT Eyes: Present: PERRL ENT: hearing intact, clear oral mucosa - Neck Neck: Present: supple, normal ROM - Respiratory Respiratory effort: normal Respiratory: bilateral: diminished, rhonchi - Cardiovascular Heart Sounds: Present: S1 & S2. Absent: rub, click - Extremities Extremities: pulses symmetrical, No edema Peripheral Pulses: within normal limits - Abdominal General gastrointestinal: Present: soft, non-tender, non-distended, normal bowel sounds Female genitourinary: Present: normal - Integumentary Integumentary: Present: warm. chronic Lymphedema, - Musculoskeletal Musculoskeletal: strength equal bilaterally, lethargic, gait not accessed. - Psychiatric Psychiatric: appropriate mood/affect, intact judgment & insight - Neurologic Neurologic: CNII-XII intact, moves all extremities - Constitutional Vitals: Temp Pulse Resp BP Pulse Ox 98.8 F 65 21 149/86 99 08/16/20 04:00 08/16/20 07:30 08/16/20 07:30 08/16/20 07:30 08/16/20 07:30 General appearance: Present: no acute distress HEART Score - HEART Score Troponin: Troponin T < 0.010 ng/mL (0.00-0.029) 08/13/20 16:30 Results - Labs CBC & Chem 7: 08/16/20 04:24 08/16/20 04:24 Labs: Laboratory Last Values WBC 8.1 K/mm3 (4.5-11.0) 08/16/20 04:24 RBC 3.59 M/mm3 (3.65-5.03) L 08/16/20 04:24 Hgb 10.4 gm/dl (10.1-14.3) 08/16/20 04:24 Hct 32.0 % (30.3-42.9) 08/16/20 04:24 MCV 89 fl (79-97) 08/16/20 04:24 MCH 29 pg (28-32) 08/16/20 04:24 MCHC 33 % (30-34) 08/16/20 04:24 RDW 16.3 % (13.2-15.2) H 08/16/20 04:24 Plt Count 244 K/mm3 (140-440) 08/16/20 04:24 Lymph % (Auto) 42.2 % (13.4-35.0) H 08/14/20 02:45 Benson % (Auto) 7.4 % (0.0-7.3) H 08/14/20 02:45 Eos % (Auto) 1.7 % (0.0-4.3) 08/14/20 02:45 Baso % (Auto) 0.7 % (0.0-1.8) 08/14/20 02:45 Lymph # (Auto) 3.9 K/mm3 (1.2-5.4) 08/14/20 02:45 Benson # (Auto) 0.7 K/mm3 (0.0-0.8) 08/14/20 02:45 Eos # (Auto) 0.2 K/mm3 (0.0-0.4) 08/14/20 02:45 Baso # (Auto) 0.1 K/mm3 (0.0-0.1) 08/14/20 02:45 Seg Neutrophils % 48.0 % (40.0-70.0) 08/14/20 02:45 Seg Neutrophils # 4.4 K/mm3 (1.8-7.7) 08/14/20 02:45 PT 14.6 Sec. (12.2-14.9) 08/13/20 19:45 INR 1.12 (0.87-1.13) 08/13/20 19:45 APTT 30.2 Sec. (24.2-36.6) 08/13/20 19:45 D-Dimer 5255.25 ng/mlDDU (0-234) H 08/14/20 10:16 Heparin Anti-Xa Level 0.34 U.I./ml (0.3-0.7) 08/15/20 16:35 ABG pH 7.411 pH Units (7.350-7.450) 08/13/20 15:59 ABG pCO2 40.7 mm Hg 08/13/20 15:59 ABG pO2 43.5 mm Hg (80.0-90.0) L 08/13/20 15:59 ABG HCO3 25.3 mmol/L (20.0-26.0) 08/13/20 15:59 ABG O2 Saturation 81.5 % (95.0-99.0) L 08/13/20 15:59 ABG O2 Content 15.6 (0.0-44) 08/13/20 15:59 ABG Base Excess 0.6 mmol/L (-2.0-3.0) 08/13/20 15:59 ABG Hemoglobin 13.9 gm/dl (12.0-16.0) 08/13/20 15:59 ABG Carboxyhemoglobin 1.2 % (0.0-5.0) 08/13/20 15:59 ABG Methemoglobin 0.6 % (0.0-1.5) 08/13/20 15:59 Oxyhemoglobin 80.1 % (95.0-99.0) L 08/13/20 15:59 FiO2 25 % 08/13/20 15:59 Sodium 139 mmol/L (137-145) 08/16/20 04:24 Potassium 4.0 mmol/L (3.6-5.0) 08/16/20 04:24 Chloride 103.8 mmol/L (98-107) 08/16/20 04:24 Carbon Dioxide 23 mmol/L (22-30) 08/16/20 04:24 Anion Gap 16 mmol/L 08/16/20 04:24 BUN 19 mg/dL (7-17) H 08/16/20 04:24 Creatinine 0.6 mg/dL (0.6-1.2) 08/16/20 04:24 Estimated GFR > 60 ml/min 08/16/20 04:24 BUN/Creatinine Ratio 32 % 08/16/20 04:24 Glucose 98 mg/dL (65-100) 08/16/20 04:24 Lactic Acid 0.80 mmol/L (0.7-2.0) 08/14/20 02:45 Calcium 8.3 mg/dL (8.4-10.2) L 08/16/20 04:24 Ferritin 250.0 ng/mL (10.0-200.0) H 08/14/20 10:16 Total Bilirubin 0.50 mg/dL (0.1-1.2) 08/13/20 16:30 AST 29 units/L (5-40) 08/13/20 16:30 ALT 10 units/L (7-56) 08/13/20 16:30 Alkaline Phosphatase 86 units/L (35-129) 08/13/20 16:30 Lactate Dehydrogenase 255 units/L (91-180) H 08/14/20 10:16 Total Creatine Kinase 95 units/L (30-135) 08/13/20 16:30 CK-MB (CK-2) 3.6 ng/mL (0.0-4.0) 08/13/20 16:30 CK-MB (CK-2) Rel Index 3.7 (0-4) 08/13/20 16:30 Troponin T < 0.010 ng/mL (0.00-0.029) 08/13/20 16:30 C-Reactive Protein 3.90 mg/dL (0.00-1.30) H 08/14/20 10:16 NT-Pro-B Natriuret Pep 685 pg/mL (0-900) 08/13/20 16:30 Total Protein 7.7 g/dL (6.3-8.2) 08/13/20 16:30 Albumin 3.6 g/dL (3.9-5) L 08/13/20 16:30 Albumin/Globulin Ratio 0.9 % 08/13/20 16:30 Procalcitonin 0.10 ng/mL (<0.15) 08/14/20 10:16 Duffy/IV: Voiding Method External Female Catheter IV Catheter Type [Left Wrist] INT / Saline Lock IV Catheter Type [Right INT / Saline Lock Forearm] Active Medications - Current Medications Current Medications: Generic Name Dose Route Start Last Admin Trade Name Freq PRN Reason Stop Dose Admin Acetaminophen 650 mg 08/13/20 20:25 08/15/20 23:50 Tylenol PO 650 mg Q6H PRN Administration Pain, Mild (1-3) Albuterol 2.5 mg 08/13/20 19:56 Proventil IH Q3HRT PRN Shortness Of Breath Hydromorphone HCl 0.25 mg 08/13/20 20:25 Dilaudid IV Q4H PRN Pain, Moderate (4-6) Heparin Sodium/Sodium Chloride 25,000 unit in 500 mls @ 30 mls/hr 08/13/20 19:00 08/15/20 16:45 Heparin/ 0.45% Nacl-25,000 Unit/500 Ml IV 1,800 units/hr TITR ZIGGY 36 mls/hr Titration Protocol 1,500 UNITS/HR Cefepime HCl 2 gm in 100 mls @ 200 mls/hr 08/13/20 22:00 08/15/20 22:59 Cefepime/Ns 2 Gm/100 Ml IV 200 mls/hr Q12HR ZIGGY Administration Protocol Morphine Sulfate 2 mg 08/13/20 19:56 Morphine IV Q4H PRN Pain , Severe (7-10) Oxycodone/Acetaminophen 1 tab 08/13/20 19:56 Percocet 5/325 PO Q6H PRN Pain, Moderate (4-6) Sodium Chloride 10 ml 08/13/20 22:00 08/15/20 22:59 Sodium Chloride Flush Syringe 10 Ml IV 10 ml BID ZIGGY Administration Sodium Chloride 10 ml 08/13/20 19:56 Sodium Chloride Flush Syringe 10 Ml IV PRN PRN LINE FLUSH Nutrition/Malnutrition Assess - Dietary Evaluation Nutrition/Malnutrition Findings: Nutrition Notes Start: 08/15/20 10:31 Freq: Status: Active Protocol: Document 08/15/20 10:31 (Rec: 08/15/20 10:35 [id number]) Nutrition Notes Need for Assessment generated from: polls or surveys interviewer,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 Pt reports no wt loss and questions about low sodium foods. Pt ate 100% of breakfast and has a great appetite. #1 Nutrition Diagnosis Food and nutrition-related knowledge deficit Etiology No prior diet edu As Evidenced by Signs and Symptoms pt had questions about low Na foods Nutrition Intervention Teaching Recipient Patient Learning Readiness Good Teaching Methods Discussion Barriers to Learning No Barriers RD phone number provided Yes Patient aware of follow up options Yes Revisit per MD consult or patient Sign Off request:
[2020-08-16] MEDS: HEPARIN/ 0.45% NACL DRIP 25,000 UNIT/500 ML BAG IV SCH (10:11)
[2020-08-16] MEDS: CEFEPIME/NS 2 GM/100 ML 2 GM/100 ML BAG IV SCH ×2 (10:11→23:17)
[2020-08-17] MEDS: HEPARIN/ 0.45% NACL DRIP 25,000 UNIT/500 ML BAG IV SCH ×2 (01:40→17:23)
[2020-08-17 05:32] LABS: Hematocrit 32.3 % (30.3-42.9); Hemoglobin 10.7 gm/dl (10.1-14.3)
[2020-08-17] MEDS: CEFEPIME/NS 2 GM/100 ML 2 GM/100 ML BAG IV SCH ×2 (09:16→21:50)
--- NOTE | 2020-08-17 10:34 | Progress Note ---
Assessment and Plan Assessment and plan: 60 YO Female with Obesity Hypoventilation Syndrome, HTN, Lymphedema,Homelessness presents to ED for evaluation. Patient states that she was in her usual state of health and experienced shortness of breath while shopping and [employer]. Patient states that she felt a sudden onset of shortness of breath and dizziness. Patient subsequently lost consciousness. At [facility] witnessed the episode and notified EMS. EMS was notified and upon arrival the patient was found to be in distress with a pulse oximetry of 82%. The patient was also hypotensive with a systolic blood pressure in the 80s. Patient was placed on submental oxygen and transported to [facility] for further care and evaluation of the aforementioned symptoms. Patient seen and evaluated in the emergency department. All lab and imaging studies reviewed. Patient found to have bilateral pulmonary embolus complicated by acute hypoxemic respiratory failure, sepsis, acidosis. Patient initiated on therapeutic anticoagulation and admitted to [facility] due to increased risk of pulmonary decompensation. Vascular surgery team consulted in the emergency department. Cardiology team consulted in the emergency department. Echocardiogram is ordered and is pending at the time of admission. Patient denies fever, chills, chest pain, palpitation, productive cough, skin rash, recent ill contacts, or known exposure to COVID-19. No prior admission for review. No medication listed at time of admission for reconciliation. R/O COVID19 Await Records from [place] [facility] [place] Continue Full dose Anticoagulation 08/15: Continues to improve, no bleeding noted, continues on Heparin, awaiting CT head and records from [place] [facility] [place]. 08/16: ct head pending, per vascular on initial review "the patient is stable and if she does have left ventricular thrombus that would be a contraindication to thrombolytic therapy as this would lyse the thrombus in the left ventricle and potentially shower the thrombus into her cerebral system, visceral arteries or lower extremities"..... The patient requires an ECHO to rule out a PFO or VSD prior to proceeding with intervention. If the patient does have a defect with a right to left shunt and there is thrombus within the left ventricle she will likely require transfer to a tertiary center for intervention as this will require a higher level of care to deal with the left ventricular thrombus in addition to the pulmonary artery thrombus. For now the patient is stable and can be maintained on a heparin drip until she has an ECHO to determine if she truly has a septal defect. The patient will also require a CT of her head prior to proceeding with thrombolytic therapy given the history of falling and hitting her head 2 days ago. 08/17: Discussed with IR, Still with significant concern due to the severity of the saddle embolus bothering her. Since patient refused CT head with contrast we are repeating a CT without contrast. Will discuss with the patient about possible thrombectomy. We will continue [facility] stay at this time. (1) Sepsis Current Visit: Yes Status: Acute Plan to address problem: Sepsis protocol: CBC, CMP, chest x-ray, urinalysis, IV fluid resuscitation therapy, monitor blood pressure every shift, maintain mean arterial pressure greater than or equal to 65, blood culture, empiric IV antibiotic therapy, serial lactic acid level. (2) Acute hypoxemic respiratory failure Current Visit: Yes Status: Acute Plan to address problem: Supplemental oxygen, CT chest, pulse oximetry, nebulizer therapy, noninvasive positive pressure ventilation as clinically indicated. Treatment saddle pulmonary embolism. (3) Metabolic acidosis Current Visit: Yes Status: Acute Plan to address problem: BMP, IV fluid resuscitation therapy, IV bicarbonate therapy, repeat BMP in a.m. (4) Obesity hypoventilation syndrome Current Visit: Yes Status: Acute Plan to address problem: Balanced diet, increase physical activity at discharge, outpatient bariatric jonna elza consultation. Outpatient pulmonary consultation for sleep study. (5) Saddle pulmonary embolus Current Visit: Yes Status: Acute Qualifiers: Chronicity: acute Acute cor pulmonale presence: without acute cor pulmonale Qualified Code(s): I26.92 - Saddle embolus of pulmonary artery without acute cor pulmonale Plan to address problem: Echocardiogram ordered and is pending at the time of admission, therapeutic anticoagulation, CTA chest, supplemental oxygen, pulse oximetry, supportive care. Vascular surgery service consulted further care as per vascular surgery team. (6) DVT prophylaxis Current Visit: Yes Status: Acute Plan to address problem: SCD to bilateral lower extremities while in bed, continue therapeutic anticoagulation. (7) Advance care planning Current Visit: Yes Status: Acute Plan to address problem: Disease education conducted, patient is full code, prognosis discussed, patient knowledges understanding and agreement with care plan, +30 minutes. The high probability of a clinically significant, sudden or life threatening deterioration of the [pulmonary] system(s) required my full and direct atten tion, intervention and personal management. The aggregate critical care time was [45] minutes. This time is in addition to time spent performing reported procedures but includes the following: [x] Data Review and interpretation [x] Patient assessment and monitoring of vital signs [x] Documentation [x] Medication orders and management History Interval history: Patient seen and examined, resting comfortable, still reports exertional discomfort, refusing head ct at this time Hospitalist Physical - Physical exam Narrative exam: General appearance: Present: resting comfortable with no distress at rest, morbidly obese - EENT Eyes: Present: PERRL ENT: hearing intact, clear oral mucosa - Neck Neck: Present: supple, normal ROM - Respiratory Respiratory effort: normal Respiratory: bilateral: diminished, rhonchi - Cardiovascular Heart Sounds: Present: S1 & S2. Absent: rub, click - Extremities Extremities: pulses symmetrical, No edema Peripheral Pulses: within normal limits - Abdominal General gastrointestinal: Present: soft, non-tender, non-distended, normal bowel sounds Female genitourinary: Present: normal - Integumentary Integumentary: Present: warm. chronic Lymphedema, - Musculoskeletal Musculoskeletal: strength equal bilaterally, lethargic, gait not accessed. - Psychiatric Psychiatric: appropriate mood/affect, intact judgment & insight - Neurologic Neurologic: CNII-XII intact, moves all extremities - Constitutional Vitals: Temp Pulse Resp BP Pulse Ox 98.4 F 73 19 148/84 91 08/17/20 08:00 08/17/20 07:01 08/17/20 07:01 08/17/20 07:01 08/17/20 07:01 General appearance: Present: no acute distress HEART Score - HEART Score Troponin: Troponin T < 0.010 ng/mL (0.00-0.029) 08/13/20 16:30 Results - Labs CBC & Chem 7: 08/17/20 04:20 08/16/20 04:24 Labs: Laboratory Last Values WBC 8.1 K/mm3 (4.5-11.0) 08/16/20 04:24 RBC 3.59 M/mm3 (3.65-5.03) L 08/16/20 04:24 Hgb 10.7 gm/dl (10.1-14.3) 08/17/20 04:20 Hct 32.3 % (30.3-42.9) 08/17/20 04:20 MCV 89 fl (79-97) 08/16/20 04:24 MCH 29 pg (28-32) 08/16/20 04:24 MCHC 33 % (30-34) 08/16/20 04:24 RDW 16.3 % (13.2-15.2) H 08/16/20 04:24 Plt Count 247 K/mm3 (140-440) 08/17/20 04:20 Lymph % (Auto) 42.2 % (13.4-35.0) H 08/14/20 02:45 [place] % (Auto) 7.4 % (0.0-7.3) H 08/14/20 02:45 Eos % (Auto) 1.7 % (0.0-4.3) 08/14/20 02:45 Baso % (Auto) 0.7 % (0.0-1.8) 08/14/20 02:45 Lymph # (Auto) 3.9 K/mm3 (1.2-5.4) 08/14/20 02:45 [place] # (Auto) 0.7 K/mm3 (0.0-0.8) 08/14/20 02:45 Eos # (Auto) 0.2 K/mm3 (0.0-0.4) 08/14/20 02:45 Baso # (Auto) 0.1 K/mm3 (0.0-0.1) 08/14/20 02:45 Seg Neutrophils % 48.0 % (40.0-70.0) 08/14/20 02:45 Seg Neutrophils # 4.4 K/mm3 (1.8-7.7) 08/14/20 02:45 PT 14.6 Sec. (12.2-14.9) 08/13/20 19:45 INR 1.12 (0.87-1.13) 08/13/20 19:45 APTT 30.2 Sec. (24.2-36.6) 08/13/20 19:45 D-Dimer 5255.25 ng/mlDDU (0-234) H 08/14/20 10:16 Heparin Anti-Xa Level 0.13 U.I./ml (0.3-0.7) L 08/16/20 17:50 ABG pH 7.411 pH Units (7.350-7.450) 08/13/20 15:59 ABG pCO2 40.7 mm Hg 08/13/20 15:59 ABG pO2 43.5 mm Hg (80.0-90.0) L 08/13/20 15:59 ABG HCO3 25.3 mmol/L (20.0-26.0) 08/13/20 15:59 ABG O2 Saturation 81.5 % (95.0-99.0) L 08/13/20 15:59 ABG O2 Content 15.6 (0.0-44) 08/13/20 15:59 ABG Base Excess 0.6 mmol/L (-2.0-3.0) 08/13/20 15:59 ABG Hemoglobin 13.9 gm/dl (12.0-16.0) 08/13/20 15:59 ABG Carboxyhemoglobin 1.2 % (0.0-5.0) 08/13/20 15:59 ABG Methemoglobin 0.6 % (0.0-1.5) 08/13/20 15:59 Oxyhemoglobin 80.1 % (95.0-99.0) L 08/13/20 15:59 FiO2 25 % 08/13/20 15:59 Sodium 139 mmol/L (137-145) 08/16/20 04:24 Potassium 4.0 mmol/L (3.6-5.0) 08/16/20 04:24 Chloride 103.8 mmol/L (98-107) 08/16/20 04:24 Carbon Dioxide 23 mmol/L (22-30) 08/16/20 04:24 Anion Gap 16 mmol/L 08/16/20 04:24 BUN 19 mg/dL (7-17) H 08/16/20 04:24 Creatinine 0.6 mg/dL (0.6-1.2) 08/16/20 04:24 Estimated GFR > 60 ml/min 08/16/20 04:24 BUN/Creatinine Ratio 32 % 08/16/20 04:24 Glucose 98 mg/dL (65-100) 08/16/20 04:24 Lactic Acid 0.80 mmol/L (0.7-2.0) 08/14/20 02:45 Calcium 8.3 mg/dL (8.4-10.2) L 08/16/20 04:24 Ferritin 250.0 ng/mL (10.0-200.0) H 08/14/20 10:16 Total Bilirubin 0.50 mg/dL (0.1-1.2) 08/13/20 16:30 AST 29 units/L (5-40) 08/13/20 16:30 ALT 10 units/L (7-56) 08/13/20 16:30 Alkaline Phosphatase 86 units/L (35-129) 08/13/20 16:30 Lactate Dehydrogenase 255 units/L (91-180) H 08/14/20 10:16 Total Creatine Kinase 95 units/L (30-135) 08/13/20 16:30 CK-MB (CK-2) 3.6 ng/mL (0.0-4.0) 08/13/20 16:30 CK-MB (CK-2) Rel Index 3.7 (0-4) 08/13/20 16:30 Troponin T < 0.010 ng/mL (0.00-0.029) 08/13/20 16:30 C-Reactive Protein 3.90 mg/dL (0.00-1.30) H 08/14/20 10:16 NT-Pro-B Natriuret Pep 685 pg/mL (0-900) 08/13/20 16:30 Total Protein 7.7 g/dL (6.3-8.2) 08/13/20 16:30 Albumin 3.6 g/dL (3.9-5) L 08/13/20 16:30 Albumin/Globulin Ratio 0.9 % 08/13/20 16:30 Procalcitonin 0.10 ng/mL (<0.15) 08/14/20 10:16 Coronavirus (PCR) Negative (Negative) 08/16/20 11:22 - Diagnostic Impressions Diagnostic Impressions: Echocardiogram 08/14/20 08:46 Transthoracic Echocardiogram Indication: Submassive PE BP: 149/88 Conclusions *ALISON *RVE WITH MOD. RV DYSFUNCTION MOD. PULM. HTN *MOD. LVH *EF 50-55% *GRADE I DIASTOLIC DYSFUNCTION *NO SIGNS OF SHUNTING FOLLOWING CONTRAST INJECTION *SIGNIFICANT SCLEROSIS OF THE AORTIC MITRAL VALVES WITH *MITRAL ANNULAR CALCIFICATION. *THERE IS A 1-2 CM DENSITY ON THE POSTERIOR MITRAL LEAFLET *WHICH IS MOST LIKELY CALCIFICATION. A VEGETATION OR THROMBUS CANNOT BE RULED OUT. Findings Procedure Info: The study quality is fair. The study is technically limited due to patient body habitus. The study was technically limited due to the patient's inability to lay in the left lateral decubitus position. Left Ventricle: The left ventricular chamber size is normal. Moderate concentric left ventricular hypertrophy is observed. The estimated ejection fraction is 50-55%. Abnormal left ventricular diastolic filling is observed, consistent with impaired relaxation. Left Atrium: The left atrium is normal in size with no visual thrombus identified. The left atrium is mildly dilated. Right Ventricle: The right ventricle is moderate to severely dilated. The right ventricular global systolic function is moderately reduced. Right Atrium: The right atrium is moderate to severely dilated. Aortic Valve: The aortic valve is trileaflet. Mild aortic cusp sclerosis is present. There is no evidence of aortic regurgitation. Mitral Valve: There is posterior mitral annular calcification. The mitral valve leaflets are mildly thickened. There is trace of mitral regurgitation. There is no evidence of mitral stenosis. Tricuspid Valve: The tricuspid valve leaflets are normal. There is mild to moderate tricuspid regurgitation. The right ventricular systolic pressure is calculated at 61 mmHg. There is no tricuspid stenosis. Pulmonic Valve: The pulmonic valve is not well visualized. There is mild pulmonic regurgitation. There is no pulmonic stenosis. Pericardium: The pericardium appears normal. Aorta: The aorta appears normal. Pulmonary Artery: The main pulmonary artery is not well visualized. Venous: The inferior vena cava is dilated. There is less than 50% respiratory change in the inferior vena cava dimension. Measurements Chambers 2D Name Value Normal Range IVSd (2D) 1.63 cm (0.6 - 1.1) LVPWd (2D) 1.42 cm (0.6 - 1.1) LVIDd (2D) 4.29 cm (3.7 - 5.6) LVIDs (2D) 3.02 cm (2 - 3.8) LV FS (2D) 29.69 % - EF Teichholz (2D) 57.06 % - Ao root diameter (2D) 2.68 cm (2 - 3.7) Volumes/Mass Name Value Normal Range LA ESV SP 4CH (A/L) 72.23 ml - LA ESV SP 2CH (A/L) 74.55 ml - LA ESV BP (A/L) 77.58 ml - LA ESV BP (A/L) index 34.33 ml/m2 - LA ESV SP 4CH (MOD) 69.84 ml - LA ESV SP 2CH (MOD) 72.27 ml - LA ESV BP (MOD) 74.92 ml - LA ESV BP (MOD) index 33.15 ml/m2 - Diastolic/Systolic Function Name Value Normal Range MV E-wave Vmax 0.84 m/sec - MV deceleration time 290.15 msec - MV A-wave Vmax 1.24 m/sec - MV E:A ratio 0.68 ratio - Aortic Valve Name Value Normal Range AV Vmax 1.92 m/sec - AV VTI 33.81 cm - AV peak gradient 14.77 mmHg - AV mean gradient 7.73 mmHg - LVOT diameter 2.01 cm - LVOT Vmax 1.06 m/sec - LVOT VTI 22.25 cm - LVOT peak gradient 4.51 mmHg - LVOT mean gradient 2.16 mmHg - SV LVOT 70.43 ml - FREDERICK (continuity Vmax) 1.75 cm2 - FREDERICK (continuity VTI) 2.08 cm2 - Ascending Ao 2.86 cm - Mitral Valve Name Value Normal Range MV Vmax 1.17 m/sec - MV VTI 30.08 cm - MV peak gradient 5.5 mmHg - MV mean gradient 1.94 mmHg - MV PHT 84.54 msec - MVA (PHT) 2.6 cm2 - MVA (continuity VTI) 2.34 cm2 - Tricuspid Valve Name Value Normal Range TV E-wave Vmax 0.51 m/sec - TR Vmax 3.41 m/sec - TR peak gradient 46.39 mmHg - RAP 15 mmHg - RVSP 61 mmHg - IVC diameter 2.5 cm (1.2 - 2.3) Pulmonic Valve/Qp:Qs Name Value Normal Range PV Vmax 1.1 m/sec - PV peak gradient 4.82 mmHg - VT end-diastolic Vmax 1.58 m/sec - RVOT Vmax 0.47 m/sec - RVOT VTI 9.99 cm - RVOT peak gradient 0.88 mmHg - PV acceleration time 117.98 msec - Duffy/IV: Voiding Method External Female Catheter IV Catheter Type [Left Wrist] INT / Saline Lock IV Catheter Type [Right INT / Saline Lock Forearm] Active Medications - Current Medications Current Medications: Generic Name Dose Route Start Last Admin Trade Name Freq PRN Reason Stop Dose Admin Acetaminophen 650 mg 08/13/20 20:25 08/15/20 23:50 Tylenol PO 650 mg Q6H PRN Administration Pain, Mild (1-3) Albuterol 2.5 mg 08/13/20 19:56 Proventil IH Q3HRT PRN Shortness Of Breath Hydromorphone HCl 0.25 mg 08/13/20 20:25 Dilaudid IV Q4H PRN Pain, Moderate (4-6) Heparin Sodium/Sodium Chloride 25,000 unit in 500 mls @ 30 mls/hr 08/13/20 19:00 08/17/20 01:40 Heparin/ 0.45% Nacl-25,000 Unit/500 Ml IV 1,800 units/hr TITR ZIGGY 36 mls/hr Administration Protocol 1,500 UNITS/HR Cefepime HCl 2 gm in 100 mls @ 200 mls/hr 08/13/20 22:00 08/17/20 09:16 Cefepime/Ns 2 Gm/100 Ml IV 08/18/20 10:29 200 mls/hr Q12HR ZIGGY Administration Protocol Morphine Sulfate 2 mg 08/13/20 19:56 Morphine IV Q4H PRN Pain , Severe (7-10) Oxycodone/Acetaminophen 1 tab 08/13/20 19:56 Percocet 5/325 PO Q6H PRN Pain, Moderate (4-6) Sodium Chloride 10 ml 08/13/20 22:00 08/17/20 09:17 Sodium Chloride Flush Syringe 10 Ml IV 10 ml BID ZIGGY Administration Sodium Chloride 10 ml 08/13/20 19:56 Sodium Chloride Flush Syringe 10 Ml IV PRN PRN LINE FLUSH Nutrition/Malnutrition Assess - Dietary Evaluation Nutrition/Malnutrition Findings: Nutrition Notes Start: 08/15/20 10:31 Freq: Status: Active Protocol: Document 08/15/20 10:31 DEJA (Rec: 08/15/20 10:35 DEJA [id number]) Nutrition Notes Need for Assessment generated from: 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 Pt reports no wt loss and questions about low sodium foods. Pt ate 100% of breakfast and has a great appetite. #1 Nutrition Diagnosis Food and nutrition-related knowledge deficit Etiology No prior diet edu As Evidenced by Signs and Symptoms pt had questions about low Na foods Nutrition Intervention Teaching Recipient Patient Learning Readiness Good Teaching Methods Discussion Barriers to Learning No Barriers RD phone number provided Yes Patient aware of follow up options Yes Revisit per MD consult or patient Sign Off request:
--- NOTE | 2020-08-17 12:01 | Progress Note ---
Assessment and Plan 60 year old female whom I saw this morning who might have met massive pulmonary embolism criteria on admission but is now submassive intermediate-high. She is on a moderate amount of oxygen, unable to walk, unable to exert herself, and unable to lay flat. Her HR is within normal limits which is quite impressive given her thrombotic lo ad and symptoms. Echo shows no obvious cardiac thrombus. There is evidence of RVSP of 61, with right sided heart dysfunction. This would not be possible if this was all acute, as the heart would not be able to generate such pressures, therefore there is a chronic component to her right sided heart dysfunction. There is moderate left VH. Patient has had elements of right sided chronic pulmonary hypertension/right heart dysfunction, with superimposed acute pulmonary embolism. Patient overall has a risk probably between 15-20% mortality in the next 30 days and probably disability afterwards. Discussed this with the patient who has lots of questions and appears agitated. Explained we can decrease her risk to 3-5% mortality with Flowtriever thrombectomy. Patient wants to think about it. I'll see her again today. She may want to speak to cardiology beforehand. --- Spoke with the patient again and she declines intervention. Explained risks, benefits, and alternatives, and has declined. Recommend conversion to Eliquis NOAC, if her insurance will pay for the medication. Eliquis 10 mg PO BID x 7 days, then Eliquis 5 mg PO BID afterwards. Subjective Date of service: 08/17/20 Interval history: On 5 L NC, was on 12 L NC yesterday, cannot move much, cannot lay flat, has not gotten out of bed. Cannot exert herself or she has significant SOB. Possibly met massive PE criteria on admission, but is now more like a submassive intermediate-high probability. lymphedema of the le. Objective - Constitutional Vitals: Vital Signs - 12hr 08/17/20 08/17/20 08/17/20 00:00 00:01 01:00 Temperature 98.3 F Pulse Rate 94 H 70 71 Pulse Rate [ 94 H Right Radial] Respiratory 22 26 H 18 Rate Blood Pressure 145/79 149/94 O2 Sat by Pulse 98 99 Oximetry 08/17/20 08/17/20 08/17/20 02:01 03:01 04:00 Temperature 98.7 F Pulse Rate 68 65 68 Pulse Rate [ 94 H Right Radial] Respiratory 22 25 H 22 Rate Blood Pressure 133/80 126/79 O2 Sat by Pulse 97 99 Oximetry 08/17/20 08/17/20 08/17/20 04:01 05:01 06:01 Temperature Pulse Rate 73 68 62 Pulse Rate [ Right Radial] Respiratory 29 H 17 22 Rate Blood Pressure 162/92 140/81 140/81 O2 Sat by Pulse 98 96 99 Oximetry 08/17/20 08/17/20 08/17/20 07:01 08:00 08:01 Temperature 98.4 F Pulse Rate 73 69 Pulse Rate [ Right Radial] Respiratory 19 20 Rate Blood Pressure 148/84 145/80 O2 Sat by Pulse 91 91 Oximetry 08/17/20 08/17/20 08/17/20 09:01 10:01 11:01 Temperature Pulse Rate 73 71 70 Pulse Rate [ Right Radial] Respiratory 20 27 H 31 H Rate Blood Pressure 140/88 149/80 150/85 O2 Sat by Pulse 92 97 97 Oximetry General appearance: Present: mild distress - EENT Eyes: EOM intact ENT: hearing intact - Neck Neck: supple - Respiratory Respiratory effort: labored Extremities: abnormal (lymphedema) - Gastrointestinal General gastrointestinal: Present: soft - Psychiatric Psychiatric: intact judgment & insight, agitated - Labs CBC & Chem 7: 08/17/20 04:20 08/16/20 04:24 Labs: Abnormal lab results 08/16/20 Range/Units 17:50 Heparin Anti-Xa Level 0.13 L (0.3-0.7) U.I./ml Medications & Allergies - Medications Allergies/Adverse Reactions: Allergies codeine Adverse Reaction (Verified 08/13/20 14:09) Nausea Home Medications: Home Medications Medication Instructions Recorded Confirmed Last Taken Type No Known Home Medications [No 08/13/20 08/13/20 Unknown History Reported Home Medications] Active Medications: Generic Name Dose Route Start Last Admin Trade Name Freq PRN Reason Stop Dose Admin Acetaminophen 650 mg 08/13/20 20:25 08/15/20 23:50 Tylenol PO 650 mg Q6H PRN Administration Pain, Mild (1-3) Albuterol 2.5 mg 08/13/20 19:56 Proventil IH Q3HRT PRN Shortness Of Breath Hydromorphone HCl 0.25 mg 08/13/20 20:25 Dilaudid IV Q4H PRN Pain, Moderate (4-6) Heparin Sodium/Sodium Chloride 25,000 unit in 500 mls @ 30 mls/hr 08/13/20 19:00 08/17/20 01:40 Heparin/ 0.45% Nacl-25,000 Unit/500 Ml IV 1,800 units/hr TITR ZIGGY 36 mls/hr Administration Protocol 1,500 UNITS/HR Cefepime HCl 2 gm in 100 mls @ 200 mls/hr 08/13/20 22:00 08/17/20 09:16 Cefepime/Ns 2 Gm/100 Ml IV 08/18/20 10:29 200 mls/hr Q12HR ZIGGY Administration Protocol Morphine Sulfate 2 mg 08/13/20 19:56 Morphine IV Q4H PRN Pain , Severe (7-10) Oxycodone/Acetaminophen 1 tab 08/13/20 19:56 Percocet 5/325 PO Q6H PRN Pain, Moderate (4-6) Sodium Chloride 10 ml 08/13/20 22:00 08/17/20 09:17 Sodium Chloride Flush Syringe 10 Ml IV 10 ml BID ZIGGY Administration Sodium Chloride 10 ml 08/13/20 19:56 Sodium Chloride Flush Syringe 10 Ml IV PRN PRN LINE FLUSH HEART Score - HEART Score Troponin: Troponin T < 0.010 ng/mL (0.00-0.029) 08/13/20 16:30
[2020-08-18] MEDS: CEFEPIME/NS 2 GM/100 ML 2 GM/100 ML BAG IV SCH (10:24)
[2020-08-18] MEDS: amLODIPine 5 MG TAB PO SCH (11:07)
--- NOTE | 2020-08-18 11:40 | Progress Note ---
Assessment and Plan Assessment and plan: 60 YO Female with Obesity Hypoventilation Syndrome, HTN, Lymphedema,Homelessness presents to ED for evaluation. Patient states that she was in her usual state of health and experienced shortness of breath while shopping and [employer]. Patient states that she felt a sudden onset of shortness of breath and dizziness. Patient subsequently lost consciousness. At [facility] witnessed the episode and notified EMS. EMS was notified and upon arrival the patient was found to be in distress with a pulse oximetry of 82%. The patient was also hypotensive with a systolic blood pressure in the 80s. Patient was placed on submental oxygen and transported to [facility] for further care and evaluation of the aforementioned symptoms. Patient seen and evaluated in the emergency department. All lab and imaging studies reviewed. Patient found to have bilateral pulmonary embolus complicated by acute hypoxemic respiratory failure, sepsis, acidosis. Patient initiated on therapeutic anticoagulation and admitted to [facility] due to increased risk of pulmonary decompensation. Vascular surgery team consulted in the emergency department. Cardiology team consulted in the emergency department. Echocardiogram is ordered and is pending at the time of admission. Patient denies fever, chills, chest pain, palpitation, productive cough, skin rash, recent ill contacts, or known exposure to COVID-19. No prior admission for review. No medication listed at time of admission for reconciliation. R/O COVID19 Await Records from [facility] Continue Full dose Anticoagulation 08/15: Continues to improve, no bleeding noted, continues on Heparin, awaiting CT head and records from [facility]. 08/16: ct head pending, per vascular on initial review "the patient is stable and if she does have left ventricular thrombus that would be a contraindication to thrombolytic therapy as this would lyse the thrombus in the left ventricle and potentially shower the thrombus into her cerebral system, visceral arteries or lower extremities"..... The patient requires an ECHO to rule out a PFO or VSD prior to proceeding with intervention. If the patient does have a defect with a right to left shunt and there is thrombus within the left ventricle she will likely require transfer to a tertiary center for intervention as this will require a higher level of care to deal with the left ventricular thrombus in addition to the pulmonary artery thrombus. For now the patient is stable and can be maintained on a heparin drip until she has an ECHO to determine if she truly has a septal defect. The patient will also require a CT of her head prior to proceeding with thrombolytic therapy given the history of falling and hitting her head 2 days ago. 08/17: Discussed with IR, Still with significant concern due to the severity of the saddle embolus bothering her. Since patient refused CT head with contrast we are repeating a CT without contrast. Will discuss with the patient about possible thrombectomy. We will continue IMCU stay at this time. 08/18. Patient seen and examined at bedside this morning. She has no complaint this morning. Patient refused thrombectomy. She wants to have only medical treatment. She is still on 5 L of oxygen. PT/OT pending. She is on heparin drip. I discussed options with her and she prefers oral medication. Start on Eliquis today. Plan for discharge when hypoxia improves (1) Sepsis Current Visit: Yes Status: Acute Plan to address problem: Sepsis protocol: CBC, CMP, chest x-ray, urinalysis, IV fluid resuscitation therapy, monitor blood pressure every shift, maintain mean arterial pressure greater than or equal to 65, blood culture, empiric IV antibiotic therapy, serial lactic acid level. (2) Acute hypoxemic respiratory failure Current Visit: Yes Status: Acute Plan to address problem: Supplemental oxygen, CT chest, pulse oximetry, nebulizer therapy, noninvasive positive pressure ventilation as clinically indicated. Treatment saddle pulmonary embolism. (3) Metabolic acidosis Current Visit: Yes Status: Acute Plan to address problem: BMP, IV fluid resuscitation therapy, IV bicarbonate therapy, repeat BMP in a.m. (4) Obesity hypoventilation syndrome Current Visit: Yes Status: Acute Plan to address problem: Balanced diet, increase physical activity at discharge, outpatient bariatric surgery consultation. Outpatient pulmonary consultation for sleep study. (5) Saddle pulmonary embolus Current Visit: Yes Status: Acute Qualifiers: Chronicity: acute Acute cor pulmonale presence: without acute cor pulmonale Qualified Code(s): I26.92 - Saddle embolus of pulmonary artery without acute cor pulmonale Plan to address problem: Echocardiogram ordered and is pending at the time of admission, therapeutic anticoagulation, CTA chest, supplemental oxygen, pulse oximetry, supportive care. Vascular surgery service consulted further care as per vascular surgery team. Patient refused thrombectomy Continue anticoagulation Needs to follow-up with pulmonology on discharge (6) DVT prophylaxis Current Visit: Yes Status: Acute Plan to address problem: SCD to bilateral lower extremities while in bed, continue therapeutic anticoagulation. (7) Advance care planning Current Visit: Yes Status: Acute Plan to address problem: Disease education conducted, patient is full code, prognosis discussed, patient knowledges understanding and agreement with care plan, +30 minutes. History Interval history: Patient seen and examined at bedside this morning. She has no complaints today. She refuses thrombectomy and further CT imaging. Hospitalist Physical - Constitutional Vitals: Temp Pulse Resp BP Pulse Ox 98.7 F 68 16 195/95 94 08/18/20 07:45 08/18/20 08:12 08/18/20 08:12 08/18/20 07:45 08/18/20 10:00 General appearance: Present: no acute distress, obese - EENT Eyes: Present: PERRL - Respiratory Respiratory: bilateral: CTA - Cardiovascular Heart Sounds: Present: S1 & S2 - Extremities Extremities: No edema - Abdominal General gastrointestinal: soft, non-tender - Psychiatric Psychiatric: appropriate mood/affect - Neurologic Neurologic: CNII-XII intact HEART Score - HEART Score Troponin: Troponin T < 0.010 ng/mL (0.00-0.029) 08/13/20 16:30 Results - Labs CBC & Chem 7: 08/17/20 04:20 08/16/20 04:24 Labs: Laboratory Last Values WBC 8.1 K/mm3 (4.5-11.0) 08/16/20 04:24 RBC 3.59 M/mm3 (3.65-5.03) L 08/16/20 04:24 Hgb 10.7 gm/dl (10.1-14.3) 08/17/20 04:20 Hct 32.3 % (30.3-42.9) 08/17/20 04:20 MCV 89 fl (79-97) 08/16/20 04:24 MCH 29 pg (28-32) 08/16/20 04:24 MCHC 33 % (30-34) 08/16/20 04:24 RDW 16.3 % (13.2-15.2) H 08/16/20 04:24 Plt Count 247 K/mm3 (140-440) 08/17/20 04:20 Lymph % (Auto) 42.2 % (13.4-35.0) H 08/14/20 02:45 Jefferson % (Auto) 7.4 % (0.0-7.3) H 08/14/20 02:45 Eos % (Auto) 1.7 % (0.0-4.3) 08/14/20 02:45 Baso % (Auto) 0.7 % (0.0-1.8) 08/14/20 02:45 Lymph # (Auto) 3.9 K/mm3 (1.2-5.4) 08/14/20 02:45 Jefferson # (Auto) 0.7 K/mm3 (0.0-0.8) 08/14/20 02:45 Eos # (Auto) 0.2 K/mm3 (0.0-0.4) 08/14/20 02:45 Baso # (Auto) 0.1 K/mm3 (0.0-0.1) 08/14/20 02:45 Seg Neutrophils % 48.0 % (40.0-70.0) 08/14/20 02:45 Seg Neutrophils # 4.4 K/mm3 (1.8-7.7) 08/14/20 02:45 PT 14.6 Sec. (12.2-14.9) 08/13/20 19:45 INR 1.12 (0.87-1.13) 08/13/20 19:45 APTT 30.2 Sec. (24.2-36.6) 08/13/20 19:45 D-Dimer 5255.25 ng/mlDDU (0-234) H 08/14/20 10:16 Heparin Anti-Xa Level 0.31 U.I./ml (0.3-0.7) 08/17/20 18:14 ABG pH 7.411 pH Units (7.350-7.450) 08/13/20 15:59 ABG pCO2 40.7 mm Hg 08/13/20 15:59 ABG pO2 43.5 mm Hg (80.0-90.0) L 08/13/20 15:59 ABG HCO3 25.3 mmol/L (20.0-26.0) 08/13/20 15:59 ABG O2 Saturation 81.5 % (95.0-99.0) L 08/13/20 15:59 ABG O2 Content 15.6 (0.0-44) 08/13/20 15:59 ABG Base Excess 0.6 mmol/L (-2.0-3.0) 08/13/20 15:59 ABG Hemoglobin 13.9 gm/dl (12.0-16.0) 08/13/20 15:59 ABG Carboxyhemoglobin 1.2 % (0.0-5.0) 08/13/20 15:59 ABG Methemoglobin 0.6 % (0.0-1.5) 08/13/20 15:59 Oxyhemoglobin 80.1 % (95.0-99.0) L 08/13/20 15:59 FiO2 25 % 08/13/20 15:59 Sodium 139 mmol/L (137-145) 08/16/20 04:24 Potassium 4.0 mmol/L (3.6-5.0) 08/16/20 04:24 Chloride 103.8 mmol/L (98-107) 08/16/20 04:24 Carbon Dioxide 23 mmol/L (22-30) 08/16/20 04:24 Anion Gap 16 mmol/L 08/16/20 04:24 BUN 19 mg/dL (7-17) H 08/16/20 04:24 Creatinine 0.6 mg/dL (0.6-1.2) 08/16/20 04:24 Estimated GFR > 60 ml/min 08/16/20 04:24 BUN/Creatinine Ratio 32 % 08/16/20 04:24 Glucose 98 mg/dL (65-100) 08/16/20 04:24 Lactic Acid 0.80 mmol/L (0.7-2.0) 08/14/20 02:45 Calcium 8.3 mg/dL (8.4-10.2) L 08/16/20 04:24 Ferritin 250.0 ng/mL (10.0-200.0) H 08/14/20 10:16 Total Bilirubin 0.50 mg/dL (0.1-1.2) 08/13/20 16:30 AST 29 units/L (5-40) 08/13/20 16:30 ALT 10 units/L (7-56) 08/13/20 16:30 Alkaline Phosphatase 86 units/L (35-129) 08/13/20 16:30 Lactate Dehydrogenase 255 units/L (91-180) H 08/14/20 10:16 Total Creatine Kinase 95 units/L (30-135) 08/13/20 16:30 CK-MB (CK-2) 3.6 ng/mL (0.0-4.0) 08/13/20 16:30 CK-MB (CK-2) Rel Index 3.7 (0-4) 08/13/20 16:30 Troponin T < 0.010 ng/mL (0.00-0.029) 08/13/20 16:30 C-Reactive Protein 3.90 mg/dL (0.00-1.30) H 08/14/20 10:16 NT-Pro-B Natriuret Pep 685 pg/mL (0-900) 08/13/20 16:30 Total Protein 7.7 g/dL (6.3-8.2) 08/13/20 16:30 Albumin 3.6 g/dL (3.9-5) L 08/13/20 16:30 Albumin/Globulin Ratio 0.9 % 08/13/20 16:30 Procalcitonin 0.10 ng/mL (<0.15) 08/14/20 10:16 Coronavirus (PCR) Negative (Negative) 08/16/20 11:22 - Diagnostic Impressions Diagnostic Impressions: Echocardiogram 08/14/20 08:46 Transthoracic Echocardiogram Indication: Submassive PE BP: 149/88 Conclusions *ALISON *RVE WITH MOD. RV DYSFUNCTION MOD. PULM. HTN *MOD. LVH *EF 50-55% *GRADE I DIASTOLIC DYSFUNCTION *NO SIGNS OF SHUNTING FOLLOWING CONTRAST INJECTION *SIGNIFICANT SCLEROSIS OF THE AORTIC MITRAL VALVES WITH *MITRAL ANNULAR CALCIFICATION. *THERE IS A 1-2 CM DENSITY ON THE POSTERIOR MITRAL LEAFLET *WHICH IS MOST LIKELY CALCIFICATION. A VEGETATION OR THROMBUS CANNOT BE RULED OUT. Findings Procedure Info: The study quality is fair. The study is technically limited due to patient body habitus. The study was technically limited due to the patient's inability to lay in the left lateral decubitus position. Left Ventricle: The left ventricular chamber size is normal. Moderate concentric left ventricular hypertrophy is observed. The estimated ejection fraction is 50-55%. Abnormal left ventricular diastolic filling is observed, consistent with impaired relaxation. Left Atrium: The left atrium is normal in size with no visual thrombus identified. The left atrium is mildly dilated. Right Ventricle: The right ventricle is moderate to severely dilated. The right ventricular global systolic function is moderately reduced. Right Atrium: The right atrium is moderate to severely dilated. Aortic Valve: The aortic valve is trileaflet. Mild aortic cusp sclerosis is present. There is no evidence of aortic regurgitation. Mitral Valve: There is posterior mitral annular calcification. The mitral valve leaflets are mildly thickened. There is trace of mitral regurgitation. There is no evidence of mitral stenosis. Tricuspid Valve: The tricuspid valve leaflets are normal. There is mild to moderate tricuspid regurgitation. The right ventricular systolic pressure is calculated at 61 mmHg. There is no tricuspid stenosis. Pulmonic Valve: The pulmonic valve is not well visualized. There is mild pulmonic regurgitation. There is no pulmonic stenosis. Pericardium: The pericardium appears normal. Aorta: The aorta appears normal. Pulmonary Artery: The main pulmonary artery is not well visualized. Venous: The inferior vena cava is dilated. There is less than 50% respiratory change in the inferior vena cava dimension. Measurements Chambers 2D Name Value Normal Range IVSd (2D) 1.63 cm (0.6 - 1.1) LVPWd (2D) 1.42 cm (0.6 - 1.1) LVIDd (2D) 4.29 cm (3.7 - 5.6) LVIDs (2D) 3.02 cm (2 - 3.8) LV FS (2D) 29.69 % - EF Teichholz (2D) 57.06 % - Ao root diameter (2D) 2.68 cm (2 - 3.7) Volumes/Mass Name Value Normal Range LA ESV SP 4CH (A/L) 72.23 ml - LA ESV SP 2CH (A/L) 74.55 ml - LA ESV BP (A/L) 77.58 ml - LA ESV BP (A/L) index 34.33 ml/m2 - LA ESV SP 4CH (MOD) 69.84 ml - LA ESV SP 2CH (MOD) 72.27 ml - LA ESV BP (MOD) 74.92 ml - LA ESV BP (MOD) index 33.15 ml/m2 - Diastolic/Systolic Function Name Value Normal Range MV E-wave Vmax 0.84 m/sec - MV deceleration time 290.15 msec - MV A-wave Vmax 1.24 m/sec - MV E:A ratio 0.68 ratio - Aortic Valve Name Value Normal Range AV Vmax 1.92 m/sec - AV VTI 33.81 cm - AV peak gradient 14.77 mmHg - AV mean gradient 7.73 mmHg - LVOT diameter 2.01 cm - LVOT Vmax 1.06 m/sec - LVOT VTI 22.25 cm - LVOT peak gradient 4.51 mmHg - LVOT mean gradient 2.16 mmHg - SV LVOT 70.43 ml - FREDERCIK (continuity Vmax) 1.75 cm2 - FREDERICK (continuity VTI) 2.08 cm2 - Ascending Ao 2.86 cm - Mitral Valve Name Value Normal Range MV Vmax 1.17 m/sec - MV VTI 30.08 cm - MV peak gradient 5.5 mmHg - MV mean gradient 1.94 mmHg - MV PHT 84.54 msec - MVA (PHT) 2.6 cm2 - MVA (continuity VTI) 2.34 cm2 - Tricuspid Valve Name Value Normal Range TV E-wave Vmax 0.51 m/sec - TR Vmax 3.41 m/sec - TR peak gradient 46.39 mmHg - RAP 15 mmHg - RVSP 61 mmHg - IVC diameter 2.5 cm (1.2 - 2.3) Pulmonic Valve/Qp:Qs Name Value Normal Range PV Vmax 1.1 m/sec - PV peak gradient 4.82 mmHg - ID end-diastolic Vmax 1.58 m/sec - RVOT Vmax 0.47 m/sec - RVOT VTI 9.99 cm - RVOT peak gradient 0.88 mmHg - PV acceleration time 117.98 msec - Duffy/IV: Voiding Method External Female Catheter IV Catheter Type [Left Wrist] INT / Saline Lock IV Catheter Type [Right INT / Saline Lock Forearm] Active Medications - Current Medications Current Medications: Generic Name Dose Route Start Last Admin Trade Name Freq PRN Reason Stop Dose Admin Acetaminophen 650 mg 08/13/20 20:25 08/15/20 23:50 Tylenol PO 650 mg Q6H PRN Administration Pain, Mild (1-3) Albuterol 2.5 mg 08/13/20 19:56 Proventil IH Q3HRT PRN Shortness Of Breath Amlodipine Besylate 5 mg 08/18/20 11:00 08/18/20 11:07 Amlodipine PO 5 mg QDAY ZIGGY Administration Hydromorphone HCl 0.25 mg 08/13/20 20:25 Dilaudid IV Q4H PRN Pain, Moderate (4-6) Heparin Sodium/Sodium Chloride 25,000 unit in 500 mls @ 30 mls/hr 08/13/20 19:00 08/17/20 18:51 Heparin/ 0.45% Nacl-25,000 Unit/500 Ml IV 1,800 units/hr TITR ZIGGY 36 mls/hr Titration Protocol 1,500 UNITS/HR Morphine Sulfate 2 mg 08/13/20 19:56 Morphine IV Q4H PRN Pain , Severe (7-10) Oxycodone/Acetaminophen 1 tab 08/13/20 19:56 Percocet 5/325 PO Q6H PRN Pain, Moderate (4-6) Sodium Chloride 10 ml 08/13/20 22:00 08/18/20 10:24 Sodium Chloride Flush Syringe 10 Ml IV 10 ml BID ZIGGY Administration Sodium Chloride 10 ml 08/13/20 19:56 Sodium Chloride Flush Syringe 10 Ml IV PRN PRN LINE FLUSH Nutrition/Malnutrition Assess - Dietary Evaluation Nutrition/Malnutrition Findings: Nutrition Notes Start: 08/15/20 10: 31 Freq: Status: Active Protocol: Document 08/15/20 10:31 (Rec: 08/15/20 10:35 [id number]) Nutrition Notes 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 Pt reports no wt loss and questions about low sodium foods. Pt ate 100% of breakfast and has a great appetite. #1 Nutrition Diagnosis Food and nutrition-related knowledge deficit Etiology No prior diet edu As Evidenced by Signs and Symptoms pt had questions about low Na foods Nutrition Intervention Teaching Recipient Patient Learning Readiness Good Teaching Methods Discussion Barriers to Learning No Barriers RD phone number provided Yes Patient aware of follow up options Yes Revisit per MD consult or patient Sign Off request:
[2020-08-18] MEDS: APIXABAN 5 MG TAB PO SCH ×2 (13:09→21:40)
[2020-08-19 06:33] LABS: Hematocrit 30.3 % (30.3-42.9); Hemoglobin 10.2 gm/dl (10.1-14.3)
[2020-08-19] MEDS: APIXABAN 5 MG TAB PO SCH ×2 (09:41→22:16)
[2020-08-19] MEDS: amLODIPine 5 MG TAB PO SCH (09:42)
--- NOTE | 2020-08-19 14:54 | Progress Note ---
Assessment and Plan Assessment and plan: 60 YO Female with Obesity Hypoventilation Syndrome, HTN, Lymphedema,Homelessness presents to ED for evaluation. Patient states that she was in her usual state of health and experienced shortness of breath while shopping and [employer]. Patient states that she felt a sudden onset of shortness of breath and dizziness. Patient subsequently lost consciousness. At [facility] witnessed the episode and notified EMS. EMS was notified and upon arrival the patient was found to be in distress with a pulse oximetry of 82%. The patient was also hypotensive with a systolic blood pressure in the 80s. Patient was placed on submental oxygen and transported to [facility] for further care and evaluation of the aforementioned symptoms. Patient seen and evaluated in the emergency department. All lab and imaging studies reviewed. Patient found to have bilateral pulmonary embolus complicated by acute hypoxemic respiratory failure, sepsis, acidosis. Patient initiated on therapeutic anticoagulation and admitted to [facility] due to increased risk of pulmonary decompensation. Vascular surgery team consulted in the emergency department. Cardiology team consulted in the emergency department. Echocardiogram is ordered and is pending at the time of admission. Patient denies fever, chills, chest pain, palpitation, productive cough, skin rash, recent ill contacts, or known exposure to COVID-19. No prior admission for review. No medication listed at time of admission for reconciliation. R/O COVID19 Await Records from [facility] Continue Full dose Anticoagulation 08/15: Continues to improve, no bleeding noted, continues on Heparin, awaiting CT head and records from [place] [facility] [place]. 08/16: ct head pending, per vascular on initial review "the patient is stable and if she does have left ventricular thrombus that would be a contraindication to thrombolytic therapy as this would lyse the thrombus in the left ventricle and potentially shower the thrombus into her cerebral system, visceral arteries or lower extremities"..... The patient requires an ECHO to rule out a PFO or VSD prior to proceeding with intervention. If the patient does have a defect with a right to left shunt and there is thrombus within the left ventricle she will likely require transfer to a tertiary center for intervention as this will require a higher level of care to deal with the left ventricular thrombus in addition to the pulmonary artery thrombus. For now the patient is stable and can be maintained on a heparin drip until she has an ECHO to determine if she truly has a septal defect. The patient will also require a CT of her head prior to proceeding with thrombolytic therapy given the history of falling and hitting her head 2 days ago. 08/17: Discussed with IR, Still with significant concern due to the severity of the saddle embolus bothering her. Since patient refused CT head with contrast we are repeating a CT without contrast. Will discuss with the patient about possible thrombectomy. We will continue IMCU stay at this time. 08/18. Patient seen and examined at bedside this morning. She has no complaint this morning. Patient refused thrombectomy. She wants to have only medical treatment. She is still on 5 L of oxygen. PT/OT pending. She is on heparin drip. I discussed options with her and she prefers oral medication. Start on Eliquis today. Plan for discharge when hypoxia improves. 08/19. Full oxygen evaluation not able to be performed today as PT not available. She is saturating in the 90-92 at rest. She will need oxygen but has no insurance. She will need to have a safe discharge planning as she is homeless and has no money with her. Of note, her wheelchair is not available at the moment. custodial manager/side door worker will arrange these prior to [facility] (1) Sepsis Current Visit: Yes Status: Acute Plan to address problem: Resolved (2) Acute hypoxemic respiratory failure Current Visit: Yes Status: Acute Plan to address problem: Supplemental oxygen, CT chest, pulse oximetry, nebulizer therapy, noninvasive positive pressure ventilation as clinically indicated. Treatment saddle pulmonary embolism. (3) Metabolic acidosis Current Visit: Yes Status: Acute Plan to address problem: BMP, IV fluid resuscitation therapy, IV bicarbonate therapy, repeat BMP in a.m. (4) Obesity hypoventilation syndrome Current Visit: Yes Status: Acute Plan to address problem: Balanced diet, increase physical activity at discharge, outpatient bariatric gambino rgery consultation. Outpatient pulmonary consultation for sleep study. (5) Saddle pulmonary embolus Current Visit: Yes Status: Acute Qualifiers: Chronicity: acute Acute cor pulmonale presence: without acute cor pulmonale Qualified Code(s): I26.92 - Saddle embolus of pulmonary artery without acute cor pulmonale Plan to address problem: Echocardiogram ordered and is pending at the time of admission, therapeutic anti coagulation, CTA chest, supplemental oxygen, pulse oximetry, supportive care. Vascular surgery service consulted further care as per vascular surgery team. Patient refused thrombectomy Continue anticoagulation Needs to follow-up with pulmonology on discharge (6) DVT prophylaxis Current Visit: Yes Status: Acute Plan to address problem: SCD to bilateral lower extremities while in bed, continue therapeutic anticoagulation. (7) Advance care planning Current Visit: Yes Status: Acute Plan to address problem: Disease education conducted, patient is full code, prognosis discussed, patient knowledges understanding and agreement with care plan, +30 minutes. History Interval history: Patient seen and examined at bedside this morning. She has no complaints today. On 5L oxygen Hospitalist Physical - Constitutional Vitals: Temp Pulse Resp BP Pulse Ox 98.4 F 74 28 H 175/85 94 08/19/20 08:13 08/19/20 09:42 08/19/20 10:00 08/19/20 09:42 08/19/20 10:00 General appearance: Present: no acute distress, obese - EENT Eyes: Present: PERRL - Respiratory Respiratory: bilateral: CTA - Cardiovascular Heart Sounds: Present: S1 & S2 - Abdominal General gastrointestinal: soft, non-distended, normal bowel sounds - Psychiatric Psychiatric: appropriate mood/affect - Neurologic Neurologic: CNII-XII intact HEART Score - HEART Score Troponin: Troponin T < 0.010 ng/mL (0.00-0.029) 08/13/20 16:30 Results - Labs CBC & Chem 7: 08/19/20 05:16 08/16/20 04:24 Labs: Laboratory Last Values WBC 8.1 K/mm3 (4.5-11.0) 08/16/20 04:24 RBC 3.59 M/mm3 (3.65-5.03) L 08/16/20 04:24 Hgb 10.2 gm/dl (10.1-14.3) 08/19/20 05:16 Hct 30.3 % (30.3-42.9) 08/19/20 05:16 MCV 89 fl (79-97) 08/16/20 04:24 MCH 29 pg (28-32) 08/16/20 04:24 MCHC 33 % (30-34) 08/16/20 04:24 RDW 16.3 % (13.2-15.2) H 08/16/20 04:24 Plt Count 231 K/mm3 (140-440) 08/19/20 05:16 Lymph % (Auto) 42.2 % (13.4-35.0) H 08/14/20 02:45 [place] % (Auto) 7.4 % (0.0-7.3) H 08/14/20 02:45 Eos % (Auto) 1.7 % (0.0-4.3) 08/14/20 02:45 Baso % (Auto) 0.7 % (0.0-1.8) 08/14/20 02:45 Lymph # (Auto) 3.9 K/mm3 (1.2-5.4) 08/14/20 02:45 [place] # (Auto) 0.7 K/mm3 (0.0-0.8) 08/14/20 02:45 Eos # (Auto) 0.2 K/mm3 (0.0-0.4) 08/14/20 02:45 Baso # (Auto) 0.1 K/mm3 (0.0-0.1) 08/14/20 02:45 Seg Neutrophils % 48.0 % (40.0-70.0) 08/14/20 02:45 Seg Neutrophils # 4.4 K/mm3 (1.8-7.7) 08/14/20 02:45 PT 14.6 Sec. (12.2-14.9) 08/13/20 19:45 INR 1.12 (0.87-1.13) 08/13/20 19:45 APTT 30.2 Sec. (24.2-36.6) 08/13/20 19:45 D-Dimer 5255.25 ng/mlDDU (0-234) H 08/14/20 10:16 Heparin Anti-Xa Level 1.94 U.I./ml (0.3-0.7) H 08/18/20 19:26 ABG pH 7.411 pH Units (7.350-7.450) 08/13/20 15:59 ABG pCO2 40.7 mm Hg 08/13/20 15:59 ABG pO2 43.5 mm Hg (80.0-90.0) L 08/13/20 15:59 ABG HCO3 25.3 mmol/L (20.0-26.0) 08/13/20 15:59 ABG O2 Saturation 81.5 % (95.0-99.0) L 08/13/20 15:59 ABG O2 Content 15.6 (0.0-44) 08/13/20 15:59 ABG Base Excess 0.6 mmol/L (-2.0-3.0) 08/13/20 15:59 ABG Hemoglobin 13.9 gm/dl (12.0-16.0) 08/13/20 15:59 ABG Carboxyhemoglobin 1.2 % (0.0-5.0) 08/13/20 15:59 ABG Methemoglobin 0.6 % (0.0-1.5) 08/13/20 15:59 Oxyhemoglobin 80.1 % (95.0-99.0) L 08/13/20 15:59 FiO2 25 % 08/13/20 15:59 Sodium 139 mmol/L (137-145) 08/16/20 04:24 Potassium 4.0 mmol/L (3.6-5.0) 08/16/20 04:24 Chloride 103.8 mmol/L (98-107) 08/16/20 04:24 Carbon Dioxide 23 mmol/L (22-30) 08/16/20 04:24 Anion Gap 16 mmol/L 08/16/20 04:24 BUN 19 mg/dL (7-17) H 08/16/20 04:24 Creatinine 0.6 mg/dL (0.6-1.2) 08/16/20 04:24 Estimated GFR > 60 ml/min 08/16/20 04:24 BUN/Creatinine Ratio 32 % 08/16/20 04:24 Glucose 98 mg/dL (65-100) 08/16/20 04:24 Lactic Acid 0.80 mmol/L (0.7-2.0) 08/14/20 02:45 Calcium 8.3 mg/dL (8.4-10.2) L 08/16/20 04:24 Ferritin 250.0 ng/mL (10.0-200.0) H 08/14/20 10:16 Total Bilirubin 0.50 mg/dL (0.1-1.2) 08/13/20 16:30 AST 29 units/L (5-40) 08/13/20 16:30 ALT 10 units/L (7-56) 08/13/20 16:30 Alkaline Phosphatase 86 units/L (35-129) 08/13/20 16:30 Lactate Dehydrogenase 255 units/L (91-180) H 08/14/20 10:16 Total Creatine Kinase 95 units/L (30-135) 08/13/20 16:30 CK-MB (CK-2) 3.6 ng/mL (0.0-4.0) 08/13/20 16:30 CK-MB (CK-2) Rel Index 3.7 (0-4) 08/13/20 16:30 Troponin T < 0.010 ng/mL (0.00-0.029) 08/13/20 16:30 C-Reactive Protein 3.90 mg/dL (0.00-1.30) H 08/14/20 10:16 NT-Pro-B Natriuret Pep 685 pg/mL (0-900) 08/13/20 16:30 Total Protein 7.7 g/dL (6.3-8.2) 08/13/20 16:30 Albumin 3.6 g/dL (3.9-5) L 08/13/20 16:30 Albumin/Globulin Ratio 0.9 % 08/13/20 16:30 Procalcitonin 0.10 ng/mL (<0.15) 08/14/20 10:16 Coronavirus (PCR) Negative (Negative) 08/16/20 11:22 - Diagnostic Impressions Diagnostic Impressions: Echocardiogram 08/14/20 08:46 Transthoracic Echocardiogram Indication: Submassive PE BP: 149/88 Conclusions *ALISON *RVE WITH MOD. RV DYSFUNCTION MOD. PULM. HTN *MOD. LVH *EF 50-55% *GRADE I DIASTOLIC DYSFUNCTION *NO SIGNS OF SHUNTING FOLLOWING CONTRAST INJECTION *SIGNIFICANT SCLEROSIS OF THE AORTIC MITRAL VALVES WITH *MITRAL ANNULAR CALCIFICATION. *THERE IS A 1-2 CM DENSITY ON THE POSTERIOR MITRAL LEAFLET *WHICH IS MOST LIKELY CALCIFICATION. A VEGETATION OR THROMBUS CANNOT BE RULED OUT. Findings Procedure Info: The study quality is fair. The study is technically limited due to patient body habitus. The study was technically limited due to the patient's inability to lay in the left lateral decubitus position. Left Ventricle: The left ventricular chamber size is normal. Moderate concentric left ventricular hypertrophy is observed. The estimated ejection fraction is 50-55%. Abnormal left ventricular diastolic filling is observed, consistent with impaired relaxation. Left Atrium: The left atrium is normal in size with no visual thrombus identified. The left atrium is mildly dilated. Right Ventricle: The right ventricle is moderate to severely dilated. The right ventricular global systolic function is moderately reduced. Right Atrium: The right atrium is moderate to severely dilated. Aortic Valve: The aortic valve is trileaflet. Mild aortic cusp sclerosis is present. There is no evidence of aortic regurgitation. Mitral Valve: There is posterior mitral annular calcification. The mitral valve leaflets are mildly thickened. There is trace of mitral regurgitation. There is no evidence of mitral stenosis. Tricuspid Valve: The tricuspid valve leaflets are normal. There is mild to moderate tricuspid regurgitation. The right ventricular systolic pressure is calculated at 61 mmHg. There is no tricuspid stenosis. Pulmonic Valve: The pulmonic valve is not well visualized. There is mild pulmonic regurgitation. There is no pulmonic stenosis. Pericardium: The pericardium appears normal. Aorta: The aorta appears normal. Pulmonary Artery: The main pulmonary artery is not well visualized. Venous: The inferior vena cava is dilated. There is less than 50% respiratory change in the inferior vena cava dimension. Measurements Chambers 2D Name Value Normal Range IVSd (2D) 1.63 cm (0.6 - 1.1) LVPWd (2D) 1.42 cm (0.6 - 1.1) LVIDd (2D) 4.29 cm (3.7 - 5.6) LVIDs (2D) 3.02 cm (2 - 3.8) LV FS (2D) 29.69 % - EF Teichholz (2D) 57.06 % - Ao root diameter (2D) 2.68 cm (2 - 3.7) Volumes/Mass Name Value Normal Range LA ESV SP 4CH (A/L) 72.23 ml - LA ESV SP 2CH (A/L) 74.55 ml - LA ESV BP (A/L) 77.58 ml - LA ESV BP (A/L) index 34.33 ml/m2 - LA ESV SP 4CH (MOD) 69.84 ml - LA ESV SP 2CH (MOD) 72.27 ml - LA ESV BP (MOD) 74.92 ml - LA ESV BP (MOD) index 33.15 ml/m2 - Diastolic/Systolic Function Name Value Normal Range MV E-wave Vmax 0.84 m/sec - MV deceleration time 290.15 msec - MV A-wave Vmax 1.24 m/sec - MV E:A ratio 0.68 ratio - Aortic Valve Name Value Normal Range AV Vmax 1.92 m/sec - AV VTI 33.81 cm - AV peak gradient 14.77 mmHg - AV mean gradient 7.73 mmHg - LVOT diameter 2.01 cm - LVOT Vmax 1.06 m/sec - LVOT VTI 22.25 cm - LVOT peak gradient 4.51 mmHg - LVOT mean gradient 2.16 mmHg - SV LVOT 70.43 ml - FREDERICK (continuity Vmax) 1.75 cm2 - FREDERICK (continuity VTI) 2.08 cm2 - Ascending Ao 2.86 cm - Mitral Valve Name Value Normal Range MV Vmax 1.17 m/sec - MV VTI 30.08 cm - MV peak gradient 5.5 mmHg - MV mean gradient 1.94 mmHg - MV PHT 84.54 msec - MVA (PHT) 2.6 cm2 - MVA (continuity VTI) 2.34 cm2 - Tricuspid Valve Name Value Normal Range TV E-wave Vmax 0.51 m/sec - TR Vmax 3.41 m/sec - TR peak gradient 46.39 mmHg - RAP 15 mmHg - RVSP 61 mmHg - IVC diameter 2.5 cm (1.2 - 2.3) Pulmonic Valve/Qp:Qs Name Value Normal Range PV Vmax 1.1 m/sec - PV peak gradient 4.82 mmHg - OR end-diastolic Vmax 1.58 m/sec - RVOT Vmax 0.47 m/sec - RVOT VTI 9.99 cm - RVOT peak gradient 0.88 mmHg - PV acceleration time 117.98 msec - Duffy/IV: Voiding Method External Female Catheter IV Catheter Type [Left Wrist] INT / Saline Lock IV Catheter Type [Right INT / Saline Lock Forearm] Active Medications - Current Medications Current Medications: Generic Name Dose Route Start Last Admin Trade Name Freq PRN Reason Stop Dose Admin Acetaminophen 650 mg 08/13/20 20:25 08/15/20 23:50 Tylenol PO 650 mg Q6H PRN Administration Pain, Mild (1-3) Albuterol 2.5 mg 08/13/20 19:56 Proventil IH Q3HRT PRN Shortness Of Breath Amlodipine Besylate 5 mg 08/18/20 11:00 08/19/20 09:42 Amlodipine PO 5 mg QDAY ZIGGY Administration Apixaban 10 mg 08/18/20 13:00 08/19/20 09:41 Eliquis PO 08/24/20 22:01 10 mg Q12HR ZIGGY Administration Protocol Hydromorphone HCl 0.25 mg 08/13/20 20:25 Dilaudid IV Q4H PRN Pain, Moderate (4-6) Morphine Sulfate 2 mg 08/13/20 19:56 Morphine IV Q4H PRN Pain , Severe (7-10) Oxycodone/Acetaminophen 1 tab 08/13/20 19:56 Percocet 5/325 PO Q6H PRN Pain, Moderate (4-6) Sodium Chloride 10 ml 08/13/20 22:00 08/19/20 09:41 Sodium Chloride Flush Syringe 10 Ml IV 10 ml BID ZIGGY Administration Sodium Chloride 10 ml 08/13/20 19:56 Sodium Chloride Flush Syringe 10 Ml IV PRN PRN LINE FLUSH Nutrition/Malnutrition Assess - Dietary Evaluation Nutrition/Malnutrition Findings: Nutrition Notes Start: 08/15/20 10:31 Freq: Status: Active Protocol: Document 08/15/20 10:31 (Rec: 08/15/20 10:35 [id number]) Nutrition Notes 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 Pt reports no wt loss and questions about low sodium foods. Pt ate 100% of breakfast and has a great appetite. #1 Nutrition Diagnosis Food and nutrition-related knowledge deficit Etiology No prior diet edu As Evidenced by Signs and Symptoms pt had questions about low Na foods Nutrition Intervention Teaching Recipient Patient Learning Readiness Good Teaching Methods Discussion Barriers to Learning No Barriers RD phone number provided Yes Patient aware of follow up options Yes Revisit per MD consult or patient Sign Off request:
[2020-08-20] MEDS: APIXABAN 5 MG TAB PO SCH ×2 (09:49→22:56)
[2020-08-20] MEDS: amLODIPine 5 MG TAB PO SCH (09:49)
--- NOTE | 2020-08-20 15:01 | Progress Note ---
Assessment and Plan Assessment and plan: 60 YO Female with Obesity Hypoventilation Syndrome, HTN, Lymphedema,Homelessness presents to ED for evaluation. Patient states that she was in her usual state of health and experienced shortness of breath while shopping and [employer]. Patient states that she felt a sudden onset of shortness of breath and dizziness. Patient subsequently lost consciousness. At [facility] witnessed the episode and notified EMS. EMS was notified and upon arrival the patient was found to be in distress with a pulse oximetry of 82%. The patient was also hypotensive with a systolic blood pressure in the 80s. Patient was placed on submental oxygen and transported to [facility] for further care and evaluation of the aforementioned symptoms. Patient seen and evaluated in the emergency department. All lab and imaging studies reviewed. Patient found to have bilateral pulmonary embolus complicated by acute hypoxemic respiratory failure, sepsis, acidosis. Patient initiated on therapeutic anticoagulation and admitted to [facility] due to increased risk of pulmonary decompensation. Vascular surgery team consulted in the emergency department. Cardiology team consulted in the emergency department. Echocardiogram is ordered and is pending at the time of admission. Patient denies fever, chills, chest pain, palpitation, productive cough, skin rash, recent ill contacts, or known exposure to COVID-19. No prior admission for review. No medication listed at time of admission for reconciliation. R/O COVID19 Await Records from [place] [facility] [place] Continue Full dose Anticoagulation 08/15: Continues to improve, no bleeding noted, continues on Heparin, awaiting CT head and records from [place] and [place]. 08/16: ct head pending, per vascular on initial review "the patient is stable and if she does have left ventricular thrombus that would be a contraindication to thrombolytic therapy as this would lyse the thrombus in the left ventricle and potentially shower the thrombus into her cerebral system, visceral arteries or lower extremities"..... The patient requires an ECHO to rule out a PFO or VSD prior to proceeding with intervention. If the patient does have a defect with a right to left shunt and there is thrombus within the left ventricle she will likely require transfer to a tertiary center for intervention as this will require a higher level of care to deal with the left ventricular thrombus in addition to the pulmonary artery thrombus. For now the patient is stable and can be maintained on a heparin drip until she has an ECHO to determine if she truly has a septal defect. The patient will also require a CT of her head prior to proceeding with thrombolytic therapy given the history of falling and hitting her head 2 days ago. 08/17: Discussed with IR, Still with significant concern due to the severity of the saddle embolus bothering her. Since patient refused CT head with contrast we are repeating a CT without contrast. Will discuss with the patient about possible thrombectomy. We will continue IMCU stay at this time. 08/18. Patient seen and examined at bedside this morning. She has no complaint this morning. Patient refused thrombectomy. She wants to have only medical treatment. She is still on 5 L of oxygen. PT/OT pending. She is on heparin drip. I discussed options with her and she prefers oral medication. Start on Eliquis today. Plan for discharge when hypoxia improves. 08/19. Full oxygen evaluation not able to be performed today as PT not available. She is saturating in the 90-92 at rest. She will need oxygen but has no insurance. She will need to have a safe discharge planning as she is homeless and has no money with her. Of note, her wheelchair is not available at the moment. senior logistics manager/bake room worker will arrange these prior to DC. 08/20. Patient seen and examined at bedside this morning. As per embedded case manager/social economist, patient will need to be weaned off oxygen prior to discharge. Patient has been embolism and is on anticoagulation. Her echocardiogram shows diastolic dysfunction and pulmonary hypertension. At this point, will try slight diuresis and see if this helps with hypoxia. Repeat BMP ordered for tomorrow morning. senior logistics manager/social economist has arranged a wheelchair and voucher for Eliquis. Problems (1) Sepsis Current Visit: Yes Status: Acute Plan to address problem: Resolved (2) Acute hypoxemic respiratory failure Current Visit: Yes Status: Acute Plan to address problem: Supplemental oxygen, CT chest, pulse oximetry, nebulizer therapy, noninvasive positive pressure ventilation as clinically indicated. Treatment saddle pulmonary embolism. Chest x-ray from admission shows slight congestive heart failure-diastolic dysfunction with pulmonary hypertension. Patient will most likely has underlying RONAK and will need to have a sleep study performed when she gets insurance. Plan to perform ABG this p.m. and repeat labs today. (3) Metabolic acidosis Current Visit: Yes Status: Acute Plan to address problem: BMP, IV fluid resuscitation therapy, IV bicarbonate therapy, repeat BMP in a.m. (4) Obesity hypoventilation syndrome Current Visit: Yes Status: Acute Plan to address problem: Balanced diet, increase physical activity at discharge, outpatient bariatric surgery consultation. Outpatient pulmonary consultation for sleep study. (5) Saddle pulmonary embolus Current Visit: Yes Status: Acute Qualifiers: Chronicity: acute Acute cor pulmonale presence: without acute cor pulmonale Qualified Code(s): I26.92 - Saddle embolus of pulmonary artery without acute cor pulmonale Plan to address problem: Echocardiogram ordered and is pending at the time of admission, therapeutic anticoagulation, CTA chest, supplemental oxygen, pulse oximetry, supportive care. Vascular surgery service consulted further care as per vascular surgery team. Patient refused thrombectomy Continue anticoagulation Needs to follow-up with pulmonology on discharge (6) DVT prophylaxis Current Visit: Yes Status: Acute Plan to address problem: SCD to bilateral lower extremities while in bed, continue therapeutic anticoagulation. (7) Advance care planning Current Visit: Yes Status: Acute Plan to address problem: Disease education conducted, patient is full code, prognosis discussed, patient knowledges understanding and agreement with care plan, +30 minutes. History Interval history: Patient seen and examined at bedside this morning. She has no complaints today. Hospitalist Physical - Constitutional Vitals: Temp Pulse Resp BP Pulse Ox 98.6 F 68 28 H 148/81 96 08/20/20 07:59 08/20/20 09:49 08/20/20 10:00 08/20/20 09:49 08/20/20 10:43 General appearance: Present: no acute distress, obese - EENT Eyes: Present: PERRL - Respiratory Respiratory: bilateral: diminished, rales (trace) - Cardiovascular Heart Sounds: Present: S1 & S2 - Extremities Extremities: no ischemia - Abdominal General gastrointestinal: soft, non-tender, non-distended, normal bowel sounds - Neurologic Neurologic: CNII-XII intact HEART Score - HEART Score Troponin: Troponin T < 0.010 ng/mL (0.00-0.029) 08/13/20 16:30 Results - Labs CBC & Chem 7: 08/19/20 05:16 08/16/20 04:24 Labs: Laboratory Last Values WBC 8.1 K/mm3 (4.5-11.0) 08/16/20 04:24 RBC 3.59 M/mm3 (3.65-5.03) L 08/16/20 04:24 Hgb 10.2 gm/dl (10.1-14.3) 08/19/20 05:16 Hct 30.3 % (30.3-42.9) 08/19/20 05:16 MCV 89 fl (79-97) 08/16/20 04:24 MCH 29 pg (28-32) 08/16/20 04:24 MCHC 33 % (30-34) 08/16/20 04:24 RDW 16.3 % (13.2-15.2) H 08/16/20 04:24 Plt Count 231 K/mm3 (140-440) 08/19/20 05:16 Lymph % (Auto) 42.2 % (13.4-35.0) H 08/14/20 02:45 [place] % (Auto) 7.4 % (0.0-7.3) H 08/14/20 02:45 Eos % (Auto) 1.7 % (0.0-4.3) 08/14/20 02:45 Baso % (Auto) 0.7 % (0.0-1.8) 08/14/20 02:45 Lymph # (Auto) 3.9 K/mm3 (1.2-5.4) 08/14/20 02:45 [place] # (Auto) 0.7 K/mm3 (0.0-0.8) 08/14/20 02:45 Eos # (Auto) 0.2 K/mm3 (0.0-0.4) 08/14/20 02:45 Baso # (Auto) 0.1 K/mm3 (0.0-0.1) 08/14/20 02:45 Seg Neutrophils % 48.0 % (40.0-70.0) 08/14/20 02:45 Seg Neutrophils # 4.4 K/mm3 (1.8-7.7) 08/14/20 02:45 PT 14.6 Sec. (12.2-14.9) 08/13/20 19:45 INR 1.12 (0.87-1.13) 08/13/20 19:45 APTT 30.2 Sec. (24.2-36.6) 08/13/20 19:45 D-Dimer 5255.25 ng/mlDDU (0-234) H 08/14/20 10:16 Heparin Anti-Xa Level 1.94 U.I./ml (0.3-0.7) H 08/18/20 19:26 ABG pH 7.411 pH Units (7.350-7.450) 08/13/20 15:59 ABG pCO2 40.7 mm Hg 08/13/20 15:59 ABG pO2 43.5 mm Hg (80.0-90.0) L 08/13/20 15:59 ABG HCO3 25.3 mmol/L (20.0-26.0) 08/13/20 15:59 ABG O2 Saturation 81.5 % (95.0-99.0) L 08/13/20 15:59 ABG O2 Content 15.6 (0.0-44) 08/13/20 15:59 ABG Base Excess 0.6 mmol/L (-2.0-3.0) 08/13/20 15:59 ABG Hemoglobin 13.9 gm/dl (12.0-16.0) 08/13/20 15:59 ABG Carboxyhemoglobin 1.2 % (0.0-5.0) 08/13/20 15:59 ABG Methemoglobin 0.6 % (0.0-1.5) 08/13/20 15:59 Oxyhemoglobin 80.1 % (95.0-99.0) L 08/13/20 15:59 FiO2 25 % 08/13/20 15:59 Sodium 139 mmol/L (137-145) 08/16/20 04:24 Potassium 4.0 mmol/L (3.6-5.0) 08/16/20 04:24 Chloride 103.8 mmol/L (98-107) 08/16/20 04:24 Carbon Dioxide 23 mmol/L (22-30) 08/16/20 04:24 Anion Gap 16 mmol/L 08/16/20 04:24 BUN 19 mg/dL (7-17) H 08/16/20 04:24 Creatinine 0.6 mg/dL (0.6-1.2) 08/16/20 04:24 Estimated GFR > 60 ml/min 08/16/20 04:24 BUN/Creatinine Ratio 32 % 08/16/20 04:24 Glucose 98 mg/dL (65-100) 08/16/20 04:24 Lactic Acid 0.80 mmol/L (0.7-2.0) 08/14/20 02:45 Calcium 8.3 mg/dL (8.4-10.2) L 08/16/20 04:24 Ferritin 250.0 ng/mL (10.0-200.0) H 08/14/20 10:16 Total Bilirubin 0.50 mg/dL (0.1-1.2) 08/13/20 16:30 AST 29 units/L (5-40) 08/13/20 16:30 ALT 10 units/L (7-56) 08/13/20 16:30 Alkaline Phosphatase 86 units/L (35-129) 08/13/20 16:30 Lactate Dehydrogenase 255 units/L (91-180) H 08/14/20 10:16 Total Creatine Kinase 95 units/L (30-135) 08/13/20 16:30 CK-MB (CK-2) 3.6 ng/mL (0.0-4.0) 08/13/20 16:30 CK-MB (CK-2) Rel Index 3.7 (0-4) 08/13/20 16:30 Troponin T < 0.010 ng/mL (0.00-0.029) 08/13/20 16:30 C-Reactive Protein 3.90 mg/dL (0.00-1.30) H 08/14/20 10:16 NT-Pro-B Natriuret Pep 685 pg/mL (0-900) 08/13/20 16:30 Total Protein 7.7 g/dL (6.3-8.2) 08/13/20 16:30 Albumin 3.6 g/dL (3.9-5) L 08/13/20 16:30 Albumin/Globulin Ratio 0.9 % 08/13/20 16:30 Procalcitonin 0.10 ng/mL (<0.15) 08/14/20 10:16 Coronavirus (PCR) Negative (Negative) 08/16/20 11:22 - Diagnostic Impressions Diagnostic Impressions: Echocardiogram 08/14/20 08:46 Transthoracic Echocardiogram Indication: Submassive PE BP: 149/88 Conclusions *ALISON *RVE WITH MOD. RV DYSFUNCTION MOD. PULM. HTN *MOD. LVH *EF 50-55% *GRADE I DIASTOLIC DYSFUNCTION *NO SIGNS OF SHUNTING FOLLOWING CONTRAST INJECTION *SIGNIFICANT SCLEROSIS OF THE AORTIC MITRAL VALVES WITH *MITRAL ANNULAR CALCIFICATION. *THERE IS A 1-2 CM DENSITY ON THE POSTERIOR MITRAL LEAFLET *WHICH IS MOST LIKELY CALCIFICATION. A VEGETATION OR THROMBUS CANNOT BE RULED OUT. Findings Procedure Info: The study quality is fair. The study is technically limited due to patient body habitus. The study was technically limited due to the patient's inability to lay in the left lateral decubitus position. Left Ventricle: The left ventricular chamber size is normal. Moderate concentric left ventricular hypertrophy is observed. The estimated ejection fraction is 50-55%. Abnormal left ventricular diastolic filling is observed, consistent with impaired relaxation. Left Atrium: The left atrium is normal in size with no visual thrombus identified. The left atrium is mildly dilated. Right Ventricle: The right ventricle is moderate to severely dilated. The right ventricular global systolic function is moderately reduced. Right Atrium: The right atrium is moderate to severely dilated. Aortic Valve: The aortic valve is trileaflet. Mild aortic cusp sclerosis is present. There is no evidence of aortic regurgitation. Mitral Valve: There is posterior mitral annular calcification. The mitral valve leaflets are mildly thickened. There is trace of mitral regurgitation. There is no evidence of mitral stenosis. Tricuspid Valve: The tricuspid valve leaflets are normal. There is mild to moderate tricuspid regurgitation. The right ventricular systolic pressure is calculated at 61 mmHg. There is no tricuspid stenosis. Pulmonic Valve: The pulmonic valve is not well visualized. There is mild pulmonic regurgitation. There is no pulmonic stenosis. Pericardium: The pericardium appears normal. Aorta: The aorta appears normal. Pulmonary Artery: The main pulmonary artery is not well visualized. Venous: The inferior vena cava is dilated. There is less than 50% respiratory change in the inferior vena cava dimension. Measurements Chambers 2D Name Value Normal Range IVSd (2D) 1.63 cm (0.6 - 1.1) LVPWd (2D) 1.42 cm (0.6 - 1.1) LVIDd (2D) 4.29 cm (3.7 - 5.6) LVIDs (2D) 3.02 cm (2 - 3.8) LV FS (2D) 29.69 % - EF Teichholz (2D) 57.06 % - Ao root diameter (2D) 2.68 cm (2 - 3.7) Volumes/Mass Name Value Normal Range LA ESV SP 4CH (A/L) 72.23 ml - LA ESV SP 2CH (A/L) 74.55 ml - LA ESV BP (A/L) 77.58 ml - LA ESV BP (A/L) index 34.33 ml/m2 - LA ESV SP 4CH (MOD) 69.84 ml - LA ESV SP 2CH (MOD) 72.27 ml - LA ESV BP (MOD) 74.92 ml - LA ESV BP (MOD) index 33.15 ml/m2 - Diastolic/Systolic Function Name Value Normal Range MV E-wave Vmax 0.84 m/sec - MV deceleration time 290.15 msec - MV A-wave Vmax 1.24 m/sec - MV E:A ratio 0.68 ratio - Aortic Valve Name Value Normal Range AV Vmax 1.92 m/sec - AV VTI 33.81 cm - AV peak gradient 14.77 mmHg - AV mean gradient 7.73 mmHg - LVOT diameter 2.01 cm - LVOT Vmax 1.06 m/sec - LVOT VTI 22.25 cm - LVOT peak gradient 4.51 mmHg - LVOT mean gradient 2.16 mmHg - SV LVOT 70.43 ml - FREDERICK (continuity Vmax) 1.75 cm2 - FREDERICK (continuity VTI) 2.08 cm2 - Ascending Ao 2.86 cm - Mitral Valve Name Value Normal Range MV Vmax 1.17 m/sec - MV VTI 30.08 cm - MV peak gradient 5.5 mmHg - MV mean gradient 1.94 mmHg - MV PHT 84.54 msec - MVA (PHT) 2.6 cm2 - MVA (continuity VTI) 2.34 cm2 - Tricuspid Valve Name Value Normal Range TV E-wave Vmax 0.51 m/sec - TR Vmax 3.41 m/sec - TR peak gradient 46.39 mmHg - RAP 15 mmHg - RVSP 61 mmHg - IVC diameter 2.5 cm (1.2 - 2.3) Pulmonic Valve/Qp:Qs Name Value Normal Range PV Vmax 1.1 m/sec - PV peak gradient 4.82 mmHg - TX end-diastolic Vmax 1.58 m/sec - RVOT Vmax 0.47 m/sec - RVOT VTI 9.99 cm - RVOT peak gradient 0.88 mmHg - PV acceleration time 117.98 msec - Duffy/IV: Voiding Method External Female Catheter IV Catheter Type [Left Wrist] INT / Saline Lock IV Catheter Type [Right INT / Saline Lock Forearm] Active Medications - Current Medications Current Medications: Generic Name Dose Route Start Last Admin Trade Name Freq PRN Reason Stop Dose Admin Acetaminophen 650 mg 08/13/20 20:25 08/15/20 23:50 Tylenol PO 650 mg Q6H PRN Administration Pain, Mild (1-3) Albuterol 2.5 mg 08/13/20 19:56 Proventil IH Q3HRT PRN Shortness Of Breath Amlodipine Besylate 5 mg 08/18/20 11:00 08/20/20 09:49 Amlodipine PO 5 mg QDAY ZIGGY Administration Apixaban 10 mg 08/18/20 13:00 08/20/20 09:49 Eliquis PO 08/24/20 22:01 10 mg Q12HR ZIGGY Administration Protocol Furosemide 40 mg 08/20/20 18:00 Lasix IV 0600,1800 ZIGGY Hydromorphone HCl 0.25 mg 08/13/20 20:25 Dilaudid IV Q4H PRN Pain, Moderate (4-6) Morphine Sulfate 2 mg 08/13/20 19:56 Morphine IV Q4H PRN Pain , Severe (7-10) Oxycodone/Acetaminophen 1 tab 08/13/20 19:56 Percocet 5/325 PO Q6H PRN Pain, Moderate (4-6) Sodium Chloride 10 ml 08/13/20 22:00 08/20/20 09:49 Sodium Chloride Flush Syringe 10 Ml IV 10 ml BID ZIGGY Administration Sodium Chloride 10 ml 08/13/20 19:56 Sodium Chloride Flush Syringe 10 Ml IV PRN PRN LINE FLUSH Nutrition/Malnutrition Assess - Dietary Evaluation Nutrition/Malnutrition Findings: Nutrition Notes Start: 08/15/20 1 0:31 Freq: Status: Active Protocol: Document 08/20/20 11:03 JOHNATHON (Rec: 08/20/20 11:06 JOHNATHON [id number]) Co-Sign 08/20/20 11:03 LP Nutrition Notes Need for Assessment generated from: LOS Initial or Follow up Brief Note Current Diagnosis Sepsis,Hypertension Other Pertinent Diagnosis Acute hypoemic respiratory failure, lymphedema Current Diet Cardiac Subjective/Other Information LOS screen. Pt reporting continued 75-100% intake of meals. Chart mentioned past homeless. Pt reported no food insecurity and follows standard nutritional guidelines at home. No over the counter supplements. Pt had no nutritional concerns/ questions. Nutrition Intervention Revisit per MD consult or patient Sign Off request:
--- NOTE | 2020-08-20 15:34 | XRay Report ---
CHEST 1 VIEW 3:15 PM INDICATION / CLINICAL INFORMATION: Hypoxia. COMPARISON: 08/13/2020. FINDINGS: SUPPORT DEVICES: None. HEART / MEDIASTINUM: Mild cardiomegaly is stable. There is mild prominence of the central pulmonary v essels. LUNGS / PLEURA: Minimal perihilar edema has resolved. The lungs are clear. No pleural fluid. No pneum othorax. ADDITIONAL FINDINGS: No significant additional findings. IMPRESSION: Mild perihilar edema has resolved. Signer Name: Kamran Rodriguez MD Signed: 08/20/2020 3:29 PM Workstation Name: [email or web address] [id number]
[2020-08-20 15:58] LABS: Blood Urea Nitrogen 11 mg/dL (7-17); Calcium 8.9 mg/dL (8.4-10.2); Hemolysis Index 3
[2020-08-20 15:59] LABS: BUN/Creatinine Ratio 18
[2020-08-20] MEDS: FUROSEMIDE 40 MG/4 ML INJ IV SCH (17:56)
[2020-08-21] MEDS: FUROSEMIDE 40 MG/4 ML INJ IV SCH ×2 (05:22→18:30)
[2020-08-21 06:41] LABS: Hematocrit 30.6 % (30.3-42.9); Hemoglobin 10.2 gm/dl (10.1-14.3)
[2020-08-21] MEDS ORDERED: amLODIPine 5 MG TAB PO SCH (07:46)
[2020-08-21] MEDS: APIXABAN 5 MG TAB PO SCH (10:56)
--- NOTE | 2020-08-21 12:21 | Progress Note ---
Assessment and Plan Assessment and plan: 60 YO Female with Obesity Hypoventilation Syndrome, HTN, Lymphedema,Homelessness presents to ED for evaluation. Patient states that she was in her usual state of health and experienced shortness of breath while shopping and [employer]. Patient states that she felt a sudden onset of shortness of breath and dizziness. Patient subsequently lost consciousness. At [facility] witnessed the episode and notified EMS. EMS was notified and upon arrival the patient was found to be in distress with a pulse oximetry of 82%. The patient was also hypotensive with a systolic blood pressure in the 80s. Patient was placed on submental oxygen and transported to [facility] for further care and evaluation of the aforementioned symptoms. Patient seen and evaluated in the emergency department. All lab and imaging studies reviewed. Patient found to have bilateral pulmonary embolus complicated by acute hypoxemic respiratory failure, sepsis, acidosis. Patient initiated on therapeutic anticoagulation and admitted to [facility] due to increased risk of pulmonary decompensation. Vascular surgery team consulted in the emergency department. Cardiology team consulted in the emergency department. Echocardiogram is ordered and is pending at the time of admission. Patient denies fever, chills, chest pain, palpitation, productive cough, skin rash, recent ill contacts, or known exposure to COVID-19. No prior admission for review. No medication listed at time of admission for reconciliation. R/O COVID19 Await Records from [facility] [address] Continue Full dose Anticoagulation 08/15: Continues to improve, no bleeding noted, continues on Heparin, awaiting CT head and records from [facility]. 08/16: ct head pending, per vascular on initial review "the patient is stable and if she does have left ventricular thrombus that would be a contraindication to thrombolytic therapy as this would lyse the thrombus in the left ventricle and potentially shower the thrombus into her cerebral system, visceral arteries or lower extremities"..... The patient requires an ECHO to rule out a PFO or VSD prior to proceeding with intervention. If the patient does have a defect with a right to left shunt and there is thrombus within the left ventricle she will likely require transfer to a tertiary center for intervention as this will require a higher level of care to deal with the left ventricular thrombus in addition to the pulmonary artery thrombus. For now the patient is stable and can be maintained on a heparin drip until she has an ECHO to determine if she truly has a septal defect. The patient will also require a CT of her head prior to proceeding with thrombolytic therapy given the history of falling and hitting her head 2 days ago. 08/17: Discussed with IR, Still with significant concern due to the severity of the saddle embolus bothering her. Since patient refused CT head with contrast we are repeating a CT without contrast. Will discuss with the patient about possible thrombectomy. We will continue IM stay at this time. 08/18. Patient seen and examined at bedside this morning. She has no complaint this morning. Patient refused thrombectomy. She wants to have only medical treatment. She is still on 5 L of oxygen. PT/OT pending. She is on heparin drip. I discussed options with her and she prefers oral medication. Start on Eliquis today. Plan for discharge when hypoxia improves. 08/19. Full oxygen evaluation not able to be performed today as PT not available. She is saturating in the 90-92 at rest. She will need oxygen but has no insurance. She will need to have a safe discharge planning as she is homeless and has no money with her. Of note, her wheelchair is not available at the moment. marketing information manager/car worker will arrange these prior to DC. 08/20. Patient seen and examined at bedside this morning. As per case management specialist/bilingual social worker, patient will need to be weaned off oxygen prior to discharge. Patient has been embolism and is on anticoagulation. Her echocardiogram shows diastolic dysfunction and pulmonary hypertension. At this point, will try slight diuresis and see if this helps with hypoxia. Repeat BMP ordered for tomorrow morning. marketing information manager/bilingual social worker has arranged a wheelchair and voucher for Eliquis. 07/22. Patient seen and examined at bedside this morning. She has no complaints today. marketing information manager to arrange for safe discharge. Problems (1) Sepsis Current Visit: Yes Status: Acute Plan to address problem: Resolved (2) Acute hypoxemic respiratory failure Current Visit: Yes Status: Acute Plan to address problem: Supplemental oxygen, CT chest, pulse oximetry, nebulizer therapy, noninvasive positive pressure ventilation as clinically indicated. Treatment saddle pulmonary embolism. Chest x-ray from admission shows slight congestive heart failure-diastolic dysfunction with pulmonary hypertension. Patient will most likely has underlying RONAK and will need to have a sleep study performed when she gets insurance. Low-dose diuretics as needed (3) Metabolic acidosis Current Visit: Yes Status: Acute Plan to address problem: Resolved (4) Obesity hypoventilation syndrome Current Visit: Yes Status: Acute Plan to address problem: Balanced diet, increase physical activity at discharge, outpatient bariatric surgery consultation. Outpatient pulmonary consultation for sleep study. (5) Saddle pulmonary embolus Current Visit: Yes Status: Acute Qualifiers: Chronicity: acute Acute cor pulmonale presence: without acute cor pulmonale Qualified Code(s): I26.92 - Saddle embolus of pulmonary artery without acute cor pulmonale Plan to address problem: Echocardiogram ordered and is pending at the time of admission, therapeutic anticoagulation, CTA chest, supplemental oxygen, pulse oximetry, supportive care. Vascular surgery service consulted further care as per vascular surgery team. Patient refused thrombectomy Continue anticoagulation. Patient prefers oral agents Needs to follow-up with pulmonology on discharge (6) DVT prophylaxis Current Visit: Yes Status: Acute Plan to address problem: SCD to bilateral lower extremities while in bed, continue therapeutic anticoagulation. (7) Advance care planning Current Visit: Yes Status: Acute Plan to address problem: Disease education conducted, patient is full code, prognosis discussed, patient knowledges understanding and agreement with care plan, +30 minutes. History Interval history: Patient seen and examined at bedside this morning. She has no complaints today. CM trying to arrange a safe discharge Hospitalist Physical - Constitutional Vitals: Temp Pulse Resp BP Pulse Ox 98.0 F 61 18 165/94 96 08/21/20 04:14 08/21/20 08:30 08/21/20 04:14 08/21/20 04:14 08/21/20 09:04 General appearance: Present: no acute distress, obese - EENT Eyes: Present: PERRL - Neck Neck: Present: supple - Respiratory Respiratory: bilateral: diminished - Cardiovascular Heart Sounds: Present: S1 & S2 - Abdominal General gastrointestinal: soft, non-tender, non-distended, normal bowel sounds - Psychiatric Psychiatric: appropriate mood/affect - Neurologic Neurologic: CNII-XII intact HEART Score - HEART Score Troponin: Troponin T < 0.010 ng/mL (0.00-0.029) 08/13/20 16:30 Results - Labs CBC & Chem 7: 08/21/20 04:29 08/20/20 15:18 Labs: Laboratory Last Values WBC 8.1 K/mm3 (4.5-11.0) 08/16/20 04:24 RBC 3.59 M/mm3 (3.65-5.03) L 08/16/20 04:24 Hgb 10.2 gm/dl (10.1-14.3) 08/21/20 04:29 Hct 30.6 % (30.3-42.9) 08/21/20 04:29 MCV 89 fl (79-97) 08/16/20 04:24 MCH 29 pg (28-32) 08/16/20 04:24 MCHC 33 % (30-34) 08/16/20 04:24 RDW 16.3 % (13.2-15.2) H 08/16/20 04:24 Plt Count 219 K/mm3 (140-440) 08/21/20 04:29 Lymph % (Auto) 42.2 % (13.4-35.0) H 08/14/20 02:45 Island % (Auto) 7.4 % (0.0-7.3) H 08/14/20 02:45 Eos % (Auto) 1.7 % (0.0-4.3) 08/14/20 02:45 Baso % (Auto) 0.7 % (0.0-1.8) 08/14/20 02:45 Lymph # (Auto) 3.9 K/mm3 (1.2-5.4) 08/14/20 02:45 Island # (Auto) 0.7 K/mm3 (0.0-0.8) 08/14/20 02:45 Eos # (Auto) 0.2 K/mm3 (0.0-0.4) 08/14/20 02:45 Baso # (Auto) 0.1 K/mm3 (0.0-0.1) 08/14/20 02:45 Seg Neutrophils % 48.0 % (40.0-70.0) 08/14/20 02:45 Seg Neutrophils # 4.4 K/mm3 (1.8-7.7) 08/14/20 02:45 PT 14.6 Sec. (12.2-14.9) 08/13/20 19:45 INR 1.12 (0.87-1.13) 08/13/20 19:45 APTT 30.2 Sec. (24.2-36.6) 08/13/20 19:45 D-Dimer 5255.25 ng/mlDDU (0-234) H 08/14/20 10:16 Heparin Anti-Xa Level 1.94 U.I./ml (0.3-0.7) H 08/18/20 19:26 ABG pH 7.411 pH Units (7.350-7.450) 08/13/20 15:59 ABG pCO2 40.7 mm Hg 08/13/20 15:59 ABG pO2 43.5 mm Hg (80.0-90.0) L 08/13/20 15:59 ABG HCO3 25.3 mmol/L (20.0-26.0) 08/13/20 15:59 ABG O2 Saturation 81.5 % (95.0-99.0) L 08/13/20 15:59 ABG O2 Content 15.6 (0.0-44) 08/13/20 15:59 ABG Base Excess 0.6 mmol/L (-2.0-3.0) 08/13/20 15:59 ABG Hemoglobin 13.9 gm/dl (12.0-16.0) 08/13/20 15:59 ABG Carboxyhemoglobin 1.2 % (0.0-5.0) 08/13/20 15:59 ABG Methemoglobin 0.6 % (0.0-1.5) 08/13/20 15:59 Oxyhemoglobin 80.1 % (95.0-99.0) L 08/13/20 15:59 FiO2 25 % 08/13/20 15:59 Sodium 142 mmol/L (137-145) 08/20/20 15:18 Potassium 4.3 mmol/L (3.6-5.0) 08/20/20 15:18 Chloride 100.5 mmol/L (98-107) 08/20/20 15:18 Carbon Dioxide 28 mmol/L (22-30) 08/20/20 15:18 Anion Gap 18 mmol/L 08/20/20 15:18 BUN 11 mg/dL (7-17) 08/20/20 15:18 Creatinine 0.6 mg/dL (0.6-1.2) 08/20/20 15:18 Estimated GFR > 60 ml/min 08/20/20 15:18 BUN/Creatinine Ratio 18 % 08/20/20 15:18 Glucose 115 mg/dL (65-100) H 08/20/20 15:18 Lactic Acid 0.80 mmol/L (0.7-2.0) 08/14/20 02:45 Calcium 8.9 mg/dL (8.4-10.2) 08/20/20 15:18 Ferritin 250.0 ng/mL (10.0-200.0) H 08/14/20 10:16 Total Bilirubin 0.50 mg/dL (0.1-1.2) 08/13/20 16:30 AST 29 units/L (5-40) 08/13/20 16:30 ALT 10 units/L (7-56) 08/13/20 16:30 Alkaline Phosphatase 86 units/L (35-129) 08/13/20 16:30 Lactate Dehydrogenase 255 units/L (91-180) H 08/14/20 10:16 Total Creatine Kinase 95 units/L (30-135) 08/13/20 16:30 CK-MB (CK-2) 3.6 ng/mL (0.0-4.0) 08/13/20 16:30 CK-MB (CK-2) Rel Index 3.7 (0-4) 08/13/20 16:30 Troponin T < 0.010 ng/mL (0.00-0.029) 08/13/20 16:30 C-Reactive Protein 3.90 mg/dL (0.00-1.30) H 08/14/20 10:16 NT-Pro-B Natriuret Pep 2142 pg/mL (0-900) H 08/20/20 15:18 Total Protein 7.7 g/dL (6.3-8.2) 08/13/20 16:30 Albumin 3.6 g/dL (3.9-5) L 08/13/20 16:30 Albumin/Globulin Ratio 0.9 % 08/13/20 16:30 Procalcitonin 0.10 ng/mL (<0.15) 08/14/20 10:16 Coronavirus (PCR) Negative (Negative) 08/16/20 11:22 - Diagnostic Impressions Diagnostic Impressions: Echocardiogram 08/14/20 08:46 Transthoracic Echocardiogram Indication: Submassive PE BP: 149/88 Conclusions *ALISON *RVE WITH MOD. RV DYSFUNCTION MOD. PULM. HTN *MOD. LVH *EF 50-55% *GRADE I DIASTOLIC DYSFUNCTION *NO SIGNS OF SHUNTING FOLLOWING CONTRAST INJECTION *SIGNIFICANT SCLEROSIS OF THE AORTIC MITRAL VALVES WITH *MITRAL ANNULAR CALCIFICATION. *THERE IS A 1-2 CM DENSITY ON THE POSTERIOR MITRAL LEAFLET *WHICH IS MOST LIKELY CALCIFICATION. A VEGETATION OR THROMBUS CANNOT BE RULED OUT. Findings Procedure Info: The study quality is fair. The study is technically limited due to patient body habitus. The study was technically limited due to the patient's inability to lay in the left lateral decubitus position. Left Ventricle: The left ventricular chamber size is normal. Moderate concentric left ventricular hypertrophy is observed. The estimated ejection fraction is 50-55%. Abnormal left ventricular diastolic filling is observed, consistent with impaired relaxation. Left Atrium: The left atrium is normal in size with no visual thrombus identified. The left atrium is mildly dilated. Right Ventricle: The right ventricle is moderate to severely dilated. The right ventricular global systolic function is moderately reduced. Right Atrium: The right atrium is moderate to severely dilated. Aortic Valve: The aortic valve is trileaflet. Mild aortic cusp sclerosis is present. There is no evidence of aortic regurgitation. Mitral Valve: There is posterior mitral annular calcification. The mitral valve leaflets are mildly thickened. There is trace of mitral regurgitation. There is no evidence of mitral stenosis. Tricuspid Valve: The tricuspid valve leaflets are normal. There is mild to moderate tricuspid regurgitation. The right ventricular systolic pressure is calculated at 61 mmHg. There is no tricuspid stenosis. Pulmonic Valve: The pulmonic valve is not well visualized. There is mild pulmonic regurgitation. There is no pulmonic stenosis. Pericardium: The pericardium appears normal. Aorta: The aorta appears normal. Pulmonary Artery: The main pulmonary artery is not well visualized. Venous: The inferior vena cava is dilated. There is less than 50% respiratory change in the inferior vena cava dimension. Measurements Chambers 2D Name Value Normal Range IVSd (2D) 1.63 cm (0.6 - 1.1) LVPWd (2D) 1.42 cm (0.6 - 1.1) LVIDd (2D) 4.29 cm (3.7 - 5.6) LVIDs (2D) 3.02 cm (2 - 3.8) LV FS (2D) 29.69 % - EF Teichholz (2D) 57.06 % - Ao root diameter (2D) 2.68 cm (2 - 3.7) Volumes/Mass Name Value Normal Range LA ESV SP 4CH (A/L) 72.23 ml - LA ESV SP 2CH (A/L) 74.55 ml - LA ESV BP (A/L) 77.58 ml - LA ESV BP (A/L) index 34.33 ml/m2 - LA ESV SP 4CH (MOD) 69.84 ml - LA ESV SP 2CH (MOD) 72.27 ml - LA ESV BP (MOD) 74.92 ml - LA ESV BP (MOD) index 33.15 ml/m2 - Diastolic/Systolic Function Name Value Normal Range MV E-wave Vmax 0.84 m/sec - MV deceleration time 290.15 msec - MV A-wave Vmax 1.24 m/sec - MV E:A ratio 0.68 ratio - Aortic Valve Name Value Normal Range AV Vmax 1.92 m/sec - AV VTI 33.81 cm - AV peak gradient 14.77 mmHg - AV mean gradient 7.73 mmHg - LVOT diameter 2.01 cm - LVOT Vmax 1.06 m/sec - LVOT VTI 22.25 cm - LVOT peak gradient 4.51 mmHg - LVOT mean gradient 2.16 mmHg - SV LVOT 70.43 ml - FREDERICK (continuity Vmax) 1.75 cm2 - FREDERICK (continuity VTI) 2.08 cm2 - Ascending Ao 2.86 cm - Mitral Valve Name Value Normal Range MV Vmax 1.17 m/sec - MV VTI 30.08 cm - MV peak gradient 5.5 mmHg - MV mean gradient 1.94 mmHg - MV PHT 84.54 msec - MVA (PHT) 2.6 cm2 - MVA (continuity VTI) 2.34 cm2 - Tricuspid Valve Name Value Normal Range TV E-wave Vmax 0.51 m/sec - TR Vmax 3.41 m/sec - TR peak gradient 46.39 mmHg - RAP 15 mmHg - RVSP 61 mmHg - IVC diameter 2.5 cm (1.2 - 2.3) Pulmonic Valve/Qp:Qs Name Value Normal Range PV Vmax 1.1 m/sec - PV peak gradient 4.82 mmHg - NM end-diastolic Vmax 1.58 m/sec - RVOT Vmax 0.47 m/sec - RVOT VTI 9.99 cm - RVOT peak gradient 0.88 mmHg - PV acceleration time 117.98 msec - Duffy/IV: Voiding Method External Female Catheter IV Catheter Type [Left Wrist] INT / Saline Lock IV Catheter Type [Right INT / Saline Lock Forearm] Active Medications - Current Medications Current Medications: Generic Name Dose Route Start Last Admin Trade Name Freq PRN Reason Stop Dose Admin Acetaminophen 650 mg 08/13/20 20:25 08/15/20 23:50 Tylenol PO 650 mg Q6H PRN Administration Pain, Mild (1-3) Albuterol 2.5 mg 08/13/20 19:56 Proventil IH Q3HRT PRN Shortness Of Breath Amlodipine Besylate 10 mg 08/21/20 07:46 08/21/20 10:56 Amlodipine PO 10 mg QDAY ZIGGY Administration Apixaban 10 mg 08/18/20 13:00 08/21/20 10:56 Eliquis PO 08/24/20 22:01 10 mg Q12HR ZIGGY Administration Protocol Furosemide 40 mg 08/20/20 18:00 08/21/20 05:22 Lasix IV 40 mg 0600,1800 ZIGGY Administration Hydromorphone HCl 0.25 mg 08/13/20 20:25 Dilaudid IV Q4H PRN Pain, Moderate (4-6) Morphine Sulfate 2 mg 08/13/20 19:56 Morphine IV Q4H PRN Pain , Severe (7-10) Oxycodone/Acetaminophen 1 tab 08/13/20 19:56 Percocet 5/325 PO Q6H PRN Pain, Moderate (4-6) Sodium Chloride 10 ml 08/13/20 22:00 08/21/20 10:57 Sodium Chloride Flush Syringe 10 Ml IV 10 ml BID ZIGGY Administration Sodium Chloride 10 ml 08/13/20 19:56 Sodium Chloride Flush Syringe 10 Ml IV PRN PRN LINE FLUSH Nutrition/Malnutrition Assess - Dietary Evaluation Nutrition/Malnutrition Findings: Nutrition Notes Start: 08/15/20 10:31 Freq: Status: Active Protocol: Document 08/20/20 11:03 JOHNATHON (Rec: 08/20/20 11:06 JOHNATHON [id number]) Co-Sign 08/20/20 11:03 LP Nutrition Notes Need for Assessment generated from: LOS Initial or Follow up Brief Note Current Diagnosis Sepsis,Hypertension Other Pertinent Diagnosis Acute hypoemic respiratory failure, lymphedema Current Diet Cardiac Subjective/Other Information LOS screen. Pt reporting continued 75-100% intake of meals. Chart mentioned past homeless. Pt reported no food insecurity and follows standard nutritional guidelines at home. No over the counter supplements. Pt had no nutritional concerns/ questions. Nutrition Intervention Revisit per MD consult or patient Sign Off request:
--- NOTE | 2020-08-21 17:20 | Discharge Summary ---
Providers - Providers Date of Admission: 08/13/20 19:56 Date of discharge: 08/21/20 Attending physician: DALLIN NGUYỄN 08/13/20 19:01 Consult to Physician [CONS] Stat Comment: Dr. Nixon spoke with Dr. Benjamin @ 1916 Consulting Provider: DON BENJAMIN Physician Instructions: Reason For Exam: Saddle embolus (pulmonary) 08/14/20 09:31 Consult to Case Management [CONS] Routine Services Needed at Discharge: Cement Finisher Helper Notified:: CM 08/14/20 09:33 Occupational Therapy Evaluate and Treat [CONS] Routine Comment: Reason For Exam: DEBILITY Physical Therapy Evaluation and Treat [CONS] Routine Comment: Reason For Exam: DEBILITY 08/18/20 07:49 Physical Therapy Evaluation and Treat [CONS] Routine Comment: Reason For Exam: Debility Primary care physician: [facility] Hospitalization Condition: Serious Hospital course: 60 YO Female with Obesity Hypoventilation Syndrome, HTN, Lymphedema,Homelessness presents to ED for evaluation. Patient states that she was in her usual state of health and experienced shortness of breath while shopping and [employer]. Patient states that she felt a sudden onset of shortness of breath and dizziness. Patient subsequently lost consciousness. At [facility] witnessed the episode and notified EMS. EMS was notified and upon arrival the patient was found to be in distress with a pulse oximetry of 82%. The patient was also hypotensive with a systolic blood pressure in the 80s. Patient was placed on submental oxygen and transported to [facility] for further care and evaluation of the aforementioned symptoms. Patient seen and evaluated in the emergency department. All lab and imaging studies reviewed. Patient found to have bilateral pulmonary embolus complicated by acute hypoxemic respiratory failure, sepsis, acidosis. Patient initiated on therapeutic anticoagulation and admitted to [facility] due to increased risk of pulmonary decompensation. Vascular surgery team consulted in the emergency department. Cardiology team consulted in the emergency department. Echocardiogram is ordered and is pending at the time of admission. Patient denies fever, chills, chest pain, palpitation, productive cough, skin rash, recent ill contacts, or known exposure to COVID-19. No prior admission for review. No medication listed at time of admission for reconciliation. R/O COVID19 Await Records from [facility] Continue Full dose Anticoagulation 08/15: Continues to improve, no bleeding noted, continues on Heparin, awaiting CT head and records from [place] [facility] [place]. 08/16: ct head pending, per vascular on initial review "the patient is stable and if she does have left ventricular thrombus that would be a contraindication to thrombolytic therapy as this would lyse the thrombus in the left ventricle and potentially shower the thrombus into her cerebral system, visceral arteries or lower extremities"..... The patient requires an ECHO to rule out a PFO or VSD prior to proceeding with intervention. If the patient does have a defect with a right to left shunt and there is thrombus within the left ventricle she will li zulma require transfer to a tertiary center for intervention as this will require a higher level of care to deal with the left ventricular thrombus in addition to the pulmonary artery thrombus. For now the patient is stable and can be maintained on a heparin drip until she has an ECHO to determine if she truly has a septal defect. The patient will also require a CT of her head prior to proceeding with thrombolytic therapy given the history of falling and hitting her head 2 days ago. 08/17: Discussed with IR, Still with significant concern due to the severity of the saddle embolus bothering her. Since patient refused CT head with contrast we are repeating a CT without contrast. Will discuss with the patient about possible thrombectomy. We will continue IMCU stay at this time. 08/18. Patient seen and examined at bedside this morning. She has no complaint this morning. Patient refused thrombectomy. She wants to have only medical treatment. She is still on 5 L of oxygen. PT/OT pending. She is on heparin drip. I discussed options with her and she prefers oral medication. Start on Eliquis today. Plan for discharge when hypoxia improves. 08/19. Full oxygen evaluation not able to be performed today as PT not available. She is saturating in the 90-92 at rest. She will need oxygen but has no insurance. She will need to have a safe discharge planning as she is homeless and has no money with her. Of note, her wheelchair is not available at the moment. assistant front desk manager/leather worker will arrange these prior to DC. 08/20. Patient seen and examined at bedside this morning. As per case management specialist/perinatal social worker, patient will need to be weaned off oxygen prior to discharge. Patient has been embolism and is on anticoagulation. Her echocardiogram shows diastolic dysfunction and pulmonary hypertension. At this point, will try slight diuresis and see if this helps with hypoxia. Repeat BMP ordered for tomorrow morning. assistant front desk manager/perinatal social worker has arranged a wheelchair and voucher for Eliquis. 07/22. Patient seen and examined at bedside this morning. She has no complaints today. assistant front desk manager to arrange for safe discharge. She will be discharged on lasix for 7 days, amlodipine 10mg daily and eliquis. She will need to follow up with a primary medical doctor immediately after discharge Disposition: DC-01 TO HOME OR SELFCARE - Discharge Diagnoses (1) Acute hypoxemic respiratory failure Status: Acute (2) Multiple pulmonary emboli Status: Acute Core Measure Documentation - Palliative Care Palliative Care/ Comfort Measures: Not Applicable - Core Measures Any of the following diagnoses?: none Exam - Constitutional Vitals: Temp Pulse Resp BP Pulse Ox 98.0 F 61 18 165/94 96 08/21/20 04:14 08/21/20 08:30 08/21/20 04:14 08/21/20 04:14 08/21/20 09:04 General appearance: Present: no acute distress, well-nourished - EENT Eyes: Present: PERRL ENT: hearing intact, clear oral mucosa - Neck Neck: Present: supple, normal ROM - Respiratory Respiratory effort: normal Respiratory: bilateral: CTA - Cardiovascular Heart Sounds: Present: S1 & S2. Absent: rub, click - Extremities Extremities: pulses symmetrical, No edema Peripheral Pulses: within normal limits - Abdominal General gastrointestinal: Present: soft, non-tender, non-distended, normal bowel sounds Female genitourinary: Present: normal - Integumentary Integumentary: Present: clear, warm, dry - Musculoskeletal Musculoskeletal: gait normal, strength equal bilaterally - Psychiatric Psychiatric: appropriate mood/affect, intact judgment & insight - Neurologic Neurologic: CNII-XII intact, moves all extremities Plan Additional Instructions: Continue oxygen supplementation. Follow up with pulmonology in the office in 1 week. Continue medications as prescribed. Follow up with: JEB CHOWDARY MD [Primary Care Provider] - 3-5 Days MALORIE BESS MD [Staff Physician] - 7 Days Prescriptions: amLODIPine 10 mg PO QDAY #30 tablet Apixaban [Eliquis] 10 mg PO Q12HR #12 tablet Apixaban [Eliquis] 5 mg PO BID #60 tablet
[2020-08-21 18:57] VITALS: BP 150/88
== END 2020-08-21 19:03 | disposition home or self-care (01) | DRG 871 ==
LOC: ED 13:51 → IMCU 19:56 → 4A 08-17 21:07
PROVIDERS: ADMIT Internal Medicine; ATTEND Internal Medicine
PROC: 4A033R1 Measurement of Arterial Saturation, Peripheral, Percutaneous Approach (ICD-10-PCS; principal; 2020-08-13)
DX: A41.9 Sepsis, unspecified organism (principal); I26.92 Saddle embolus of pulmonary artery without acute cor pulmonale; J96.01 Acute respiratory failure with hypoxia; E66.2 Morbid (severe) obesity with alveolar hypoventilation; Z68.41 Body mass index [BMI] 40.0-44.9, adult; E87.2 Acidosis; Z71.3 Dietary counseling and surveillance; Z20.828 Contact with and (suspected) exposure to other viral communicable diseases; Z88.5 Allergy status to narcotic agent; Z59.0 Homelessness; Z71.89 Other specified counseling; I11.0 Hypertensive heart disease with heart failure; I50.9 Heart failure, unspecified; I27.20 Pulmonary hypertension, unspecified
CPT/HCPCS: 36415; 71045; 71275; 80048; 80053; 82140; 82550; 82553; 82728; 82803; 82947; 83615; 83880; 84132; 84145; 84484; 85014; 85018; 85025; 85027; 85049; 85379; 85520; 85610; 85730; 86140; 93005; 93306; 93970; 94760; 96374; 96375; G0378; J0692; J1644; J1940; J7030; J7040; Q9967; U0003-CS

== ENCOUNTER 2020-08-21 21:06 | Emergency (ER) | payer OTHER, SELFPAY ==
--- NOTE | 2020-08-22 13:50 | Emergency Department Report ---
HPI - General Chief Complaint: Medical Clearance Time Seen by Provider: 08/22/20 13:38 - HPI HPI: Room 8 The patient is a 60-year-old female present with a chief complaint of homelessness. The patient was admitted to this hospital by myself recently af ter being diagnosed with bilateral pulmonary emboli leading to syncope and hypoxia. The patient was managed medically and eventually discharge to another facility as the patient is homeless. However upon arrival to that facility the patient was uncomfortable as there were all male residents and she states that there were too many steps and she cannot access it with her wheelchair. Subsequently the patient was returned to the emergency department. When asked how she is feeling the patient states she feels all right and has no complaints. ED Past Medical Hx - Past Medical History Previous Medical History?: Yes Hx Hypertension: Yes Additional medical history: lymphedema - Surgical History Past Surgical History?: Yes Additional Surgical History: graft R leg - Family History Family history: no significant - Social History Smoking Status: Never Smoker Substance Use Type: None - Medications Home Medications: Home Medications Medication Instructions Recorded Confirmed Last Taken Type Apixaban [Eliquis] 5 mg PO BID #60 tablet 08/21/20 Unknown Rx Apixaban [Eliquis] 10 mg PO Q12HR #12 tablet 08/21/20 Unknown Rx amLODIPine 10 mg PO QDAY #30 tablet 08/21/20 Unknown Rx ED Review of Systems ROS: Stated complaint: CM Other details as noted in HPI Constitutional: no symptoms reported Respiratory: no symptoms reported Endocrine: no symptoms reported Physical Exam - Physical Exam Vital Signs: Vital Signs 08/21/20 22:31 Temperature 98.6 F Pulse Rate 72 Respiratory 18 Rate Blood Pressure 168/78 O2 Sat by Pulse 97 Oximetry Physical Exam: GENERAL: The patient is well-developed well-nourished female sitting on [facility] not appearing to be in acute distress. [] HEENT: Normocephalic. Atraumatic. Extraocular motions are intact. Patient has moist mucous membranes. NECK: Supple. Trachea midline CHEST/LUNGS: Clear to auscultation. There is no respiratory distress noted. HEART/CARDIOVASCULAR: Regular. There is no tachycardia. There is no gallop rub or murmur. ABDOMEN: Abdomen is soft, nontender. Patient has normal bowel sounds. There is no abdominal distention. SKIN: There is no rash. There is no diaphoresis. NEURO: The patient is awake, alert, and oriented. The patient is cooperative. The patient has normal speech MUSCULOSKELETAL: There is no evidence of acute injury. ED Course Vital Signs 08/21/20 22:31 Temperature 98.6 F Pulse Rate 72 Respiratory 18 Rate Blood Pressure 168/78 O2 Sat by Pulse 97 Oximetry ED Medical Decision Making - Differential Diagnosis Homelessness Critical care attestation.: If time is entered above; I have spent that time in minutes in the direct care of this critically ill patient, excluding procedure time. ED Disposition Clinical Impression: Homelessness Condition: Stable Referrals: PRIMARY CARE, [Primary Care Provider] - 3-5 Days
[2020-08-24] MEDS ORDERED: amLODIPine 5 MG TAB PO SCH (17:00)
[2020-08-24] MEDS: APIXABAN 5 MG TAB PO SCH (22:32)
[2020-08-25] MEDS: amLODIPine 10 MG TAB PO SCH ×2 (11:08→11:13)
[2020-08-25] MEDS: APIXABAN 5 MG TAB PO SCH (11:08)
[2020-08-25 18:05] VITALS: BP 144/70
[2020-08-31] MEDS ORDERED: APIXABAN 5 MG TAB PO SCH (22:00)
== END 2020-08-25 16:16 | disposition home or self-care (01) ==
LOC: ED 21:06
DX: Z59.0 Homelessness (principal); I10 Essential (primary) hypertension; Z98.890 Other specified postprocedural states; Z79.899 Other long term (current) drug therapy
CPT/HCPCS: 99283

== ENCOUNTER 2020-11-04 20:13 | Emergency (ER) | payer OTHER, SELFPAY ==
--- NOTE | 2020-11-05 05:16 | XRay Report ---
Left knee-2 views INDICATION: left knee pain. COMPARISON: None. IMPRESSION: No gross acute fracture identified on these limited images. [employer] [facility] VINIC[facility]. Signer Name: Scott Escobar MD Signed: 11/05/2020 5:12 AM Workstation Name: [id number]
--- NOTE | 2020-11-05 12:57 | Emergency Department Report ---
ED General Adult HPI - General Chief complaint: Extremity Injury, Lower Stated complaint: BILATERAL LEG PAIN DIARRHEA Time Seen by Provider: 11/05/20 09:08 Source: patient Mode of arrival: Stretcher Limitations: Physical Limitation - History of Present Illness Initial comments: This is a 60-year-old female nontoxic, well nourished in appearance, no acute signs of distress presents to the ED with c/o of bilateral lower legs swelling, redness and pain x several days. Patient has some purulent drainage to right distal lower leg. Patient is homeless. Patient denies any fever, chills, nausea, vomiting, chest pain, shortness of breath, headache or stiff neck. Patient stated allergies to codeine. -: days(s) Location: lower extremity Radiation: non-radiation Severity scale (0 -10): 8 Quality: burning, aching Consistency: constant Improves with: none Worsens with: none Associated Symptoms: denies other symptoms. denies: confusion, chest pain, cough, diaphoresis, fever/chills, headaches, loss of appetite, malaise, nause a/vomiting, rash, seizure, shortness of breath, syncope, weakness Treatments Prior to Arrival: none - Related Data Previous Rx's Medication Instructions Recorded Last Taken Type Apixaban [Eliquis] 5 mg PO BID #60 tablet 08/21/20 Unknown Rx Apixaban [Eliquis] 10 mg PO Q12HR #12 tablet 08/21/20 Unknown Rx amLODIPine 10 mg PO QDAY #30 tablet 08/21/20 Unknown Rx Allergies Allergy/AdvReac Type Severity Reaction Status Date / Time codeine AdvReac Nausea Verified 11/05/20 09:56 ED Review of Systems ROS: Stated complaint: BILATERAL LEG PAIN DIARRHEA Other details as noted in HPI Constitutional: denies: chills, fever Eyes: denies: eye pain, eye discharge, vision change ENT: denies: ear pain, throat pain Respiratory: denies: cough, shortness of breath, wheezing Cardiovascular: denies: chest pain, palpitations Endocrine: no symptoms reported Gastrointestinal: denies: abdominal pain, nausea, diarrhea Genitourinary: denies: urgency, dysuria, discharge Musculoskeletal: denies: back pain, joint swelling, arthralgia Skin: denies: rash, lesions Neurological: denies: headache, weakness, paresthesias Psychiatric: denies: anxiety, depression Hematological/Lymphatic: denies: easy bleeding, easy bruising ED Past Medical Hx - Past Medical History Previous Medical History?: Yes Hx Hypertension: Yes Additional medical history: lymphedema - Surgical History Past Surgical History?: Yes Additional Surgical History: graft R leg - Social History Smoking Status: Never Smoker Substance Use Type: None - Medications Home Medications: Home Medications Medication Instructions Recorded Confirmed Last Taken Type Apixaban [Eliquis] 5 mg PO BID #60 tablet 08/21/20 11/10/20 Unknown Rx Apixaban [Eliquis] 10 mg PO Q12HR #12 tablet 08/21/20 11/10/20 Unknown Rx amLODIPine 10 mg PO QDAY #30 tablet 08/21/20 11/10/20 Unknown Rx ED Physical Exam - General Limitations: Physical Limitation General appearance: alert, in no apparent distress - Head Head exam: Present: atraumatic, normocephalic - Eye Eye exam: Present: normal appearance - Neck Neck exam: Present: normal inspection, full ROM. Absent: tenderness, meningismus, lymphadenopathy - Respiratory Respiratory exam: Present: normal lung sounds bilaterally. Absent: respiratory distress, wheezes, rales, rhonchi, stridor, chest wall tenderness, accessory muscle use, decreased breath sounds, prolonged expiratory - Cardiovascular Cardiovascular Exam: Present: regular rate, normal rhythm, normal heart sounds. Absent: bradycardia, tachycardia, irregular rhythm, systolic murmur, diastolic murmur, rubs, gallop - GI/Abdominal GI/Abdominal exam: Present: soft, normal bowel sounds. Absent: distended, tenderness, guarding, rebound, rigid, diminished bowel sounds - Extremities Exam Extremities exam: Present: full ROM, tenderness, normal capillary refill, pedal edema. Absent: joint swelling, calf tenderness - Expanded Lower Extremity Exam Left Hip exam: Present: normal inspection (bilateral exam), full ROM (bilateral exam). Absent: tenderness, swelling Upper Leg exam: Present: normal inspection (bilateral exam), full ROM (bilateral exam). Absent: tenderness, swelling Knee exam: Present: normal inspection (bilateral exam), full ROM (bilateral exam), full knee extension (bilateral exam). Absent: tenderness, swelling, abrasion, laceration, ecchymosis, deformity, crepidus, dislocation, erythema, effusion, pain w/ pronation/supination, posterior draw sign, pain/laxity with valgus, pain/laxity with varus Lower Leg exam: Present: full ROM (bilateral exam), tenderness (bilateral exam), swelling (bilateral exam), erythema (bilateral exam). Absent: abrasion, laceration, ecchymosis, deformity, crepidus, dislocation, palpable cord, Braden's sign Ankle exam: Present: full ROM (bilateral exam), tenderness (bilateral exam), swelling (bilateral exam), erythema (bilateral exam). Absent: abrasion, laceration, ecchymosis, deformity, crepidus, dislocation, anterior draw sign Foot/Toe exam: Present: normal inspection (bilateral exam), full ROM (bilateral exam). Absent: tenderness, swelling Neuro vascular tendon exam: Present: no vascular compromise Gait: Positive: observed and limited by pain 1 - Purulent drainage noted here 2 - Cellulitis with swelling 3 - Cellulitis with swelling present - Back Exam Back exam: Present: normal inspection, full ROM - Neurological Exam Neurological exam: Present: alert, oriented X3 - Psychiatric Psychiatric exam: Present: normal affect, normal mood - Skin Skin exam: Present: warm, dry, intact, normal color. Absent: rash ED Course Vital Signs 11/05/20 11/05/20 11/05/20 02:40 02:43 09:30 Temperature 98 F Pulse Rate 79 79 Respiratory 18 19 Rate Blood Pressure 173/76 Blood Pressure 136/70 [Left] Blood Pressure [Right] O2 Sat by Pulse 98 95 Oximetry 11/05/20 11/05/20 11/06/20 11:12 13:10 08:09 Temperature 97.6 F Pulse Rate 76 83 77 Respiratory 16 17 Rate Blood Pressure Blood Pressure 125/63 178/88 149/65 [Left] Blood Pressure [Right] O2 Sat by Pulse 95 98 94 Oximetry 11/06/20 11/06/20 11/06/20 19:36 19:46 20:00 Temperature Pulse Rate 90 89 89 Respiratory 20 16 26 H Rate Blood Pressure Blood Pressure [Left] Blood Pressure [Right] O2 Sat by Pulse 97 95 96 Oximetry 12/11/06/20 11/06/20 20:16 20:30 20:46 Temperature Pulse Rate 88 83 87 Respiratory 21 18 24 Rate Blood Pressure Blood Pressure [Left] Blood Pressure [Right] O2 Sat by Pulse 96 97 96 Oximetry 11/06/20 11/06/20 11/06/20 21:00 21:16 21:30 Temperature Pulse Rate 93 H 87 85 Respiratory 12 24 22 Rate Blood Pressure Blood Pressure [Left] Blood Pressure [Right] O2 Sat by Pulse 96 96 93 Oximetry 11/06/20 11/06/20 11/06/20 21:46 22:00 22:16 Temperature Pulse Rate 85 84 85 Respiratory 22 22 21 Rate Blood Pressure Blood Pressure [Left] Blood Pressure [Right] O2 Sat by Pulse 92 95 94 Oximetry 11/06/20 11/06/20 11/06/20 22:30 22:36 22:46 Temperature Pulse Rate 83 89 87 Respiratory 21 25 H 22 Rate Blood Pressure Blood Pressure [Left] Blood Pressure [Right] O2 Sat by Pulse 93 94 92 Oximetry 11/06/20 11/06/20 11/06/20 23:00 23:16 23:30 Temperature Pulse Rate 82 87 87 Respiratory 24 22 22 Rate Blood Pressure Blood Pressure [Left] Blood Pressure [Right] O2 Sat by Pulse 95 94 95 Oximetry 11/06/20 11/06/20 11/06/20 23:34 23:36 23:45 Temperature Pulse Rate 84 85 85 Respiratory 30 H 22 23 Rate Blood Pressure 106/68 Blood Pressure [Left] Blood Pressure 165/75 [Right] O2 Sat by Pulse 98 97 96 Oximetry 11/07/20 11/07/20 11/07/20 00:01 00:15 00:31 Temperature Pulse Rate 90 87 84 Respiratory 16 24 20 Rate Blood Pressure 106/68 106/68 106/68 Blood Pressure [Left] Blood Pressure [Right] O2 Sat by Pulse 93 95 95 Oximetry 11/08/20 11/08/20 11/09/20 19:00 20:10 02:05 Temperature 99.0 F 98.6 F Pulse Rate 118 H 84 Respiratory 18 20 18 Rate Blood Pressure Blood Pressure [Left] Blood Pressure 157/77 127/58 [Right] O2 Sat by Pulse 98 20 L 96 Oximetry 11/09/20 11/09/20 11/10/20 08:14 20:00 01:50 Temperature 97.8 F 98.5 F 98.3 F Pulse Rate 78 81 110 H Respiratory 18 18 18 Rate Blood Pressure Blood Pressure [Left] Blood Pressure 164/73 158/79 139/73 [Right] O2 Sat by Pulse 96 96 96 Oximetry 11/10/20 11/10/20 11/11/20 07:55 20:06 02:30 Temperature 98.5 F 98.2 F 98.0 F Pulse Rate 78 72 69 Respiratory 18 18 18 Rate Blood Pressure Blood Pressure [Left] Blood Pressure 173/87 156/85 159/80 [Right] O2 Sat by Pulse 96 95 95 Oximetry 11/11/20 07:55 Temperature 97.8 F Pulse Rate 76 Respiratory 18 Rate Blood Pressure Blood Pressure [Left] Blood Pressure 182/62 [Right] O2 Sat by Pulse Oximetry - Reevaluation(s) Reevaluation #1: 11/05/20 12:59 Patient is speaking in full sentences with no signs of distress noted. Reevaluation #2: 11/06/20 16:24 At this time patient is stable. Vital signs are stable. Patient does not have any distress. Patient was consulted with Dr. Nixon with the discharge plan of care and agrees. Patient still awaiting for case management. - Consultations Consultation #1: 11/05/20 13:15 Patient has been consulted with Dr. Nixon about patient history, physical exam, and labs and agrees to ED plan of care and admission. Consultation #2: 11/05/20 13:34 Patient has been consulted with Dr. Hernández which stated patient does not meet admission criteria and patient to be discharged with wound care and case management. ED Medical Decision Making - Lab Data Result diagrams: 11/05/20 12:37 11/05/20 12:37 Lab Results 11/05/20 11/05/20 11/05/20 Range/Units 12:37 12:37 12:37 WBC 6.1 (4.5-11.0) K/mm3 RBC 4.08 (3.65-5.03) M/mm3 Hgb 11.6 (10.1-14.3) gm/dl Hct 35.2 (30.3-42.9) % MCV 86 (79-97) fl MCH 28 (28-32) pg MCHC 33 (30-34) % RDW 15.9 H (13.2-15.2) % Plt Count 281 (140-440) K/mm3 Lymph % (Auto) 30.4 (13.4-35.0) % [place] % (Auto) 9.6 H (0.0-7.3) % Eos % (Auto) 3.5 (0.0-4.3) % Baso % (Auto) 0.4 (0.0-1.8) % Lymph # (Auto) 1.9 (1.2-5.4) K/mm3 [place] # (Auto) 0.6 (0.0-0.8) K/mm3 Eos # (Auto) 0.2 (0.0-0.4) K/mm3 Baso # (Auto) 0.0 (0.0-0.1) K/mm3 Seg Neutrophils % 56.1 (40.0-70.0) % Seg Neutrophils # 3.4 (1.8-7.7) K/mm3 Sodium 144 (137-145) mmol/L Potassium 3.9 (3.6-5.0) mmol/L Chloride 103.8 (98-107) mmol/L Carbon Dioxide 34 H (22-30) mmol/L Anion Gap 10 mmol/L BUN 23 H (7-17) mg/dL Creatinine 0.4 L (0.6-1.2) mg/dL Estimated GFR > 60 ml/min BUN/Creatinine Ratio 58 % Glucose 68 (65-100) mg/dL Lactic Acid 1.20 (0.7-2.0) mmol/L Calcium 9.3 (8.4-10.2) mg/dL Total Bilirubin 0.30 (0.1-1.2) mg/dL AST 15 (5-40) units/L ALT 17 (7-56) units/L Alkaline Phosphatase 78 (35-129) units/L Total Protein 6.9 (6.3-8.2) g/dL Albumin 3.3 L (3.9-5) g/dL Albumin/Globulin Ratio 0.9 % - Medical Decision Making 60-year-old female that presents with bilateral leg swelling and cellulitis with some purulent drainage. Patient is stable and was examined by me. As per Dr. Hernández, patient does not meet admission criteria and patient to be discharged at this time with oral antibiotics and case management involvement. Patient received resuscitation with IV antibiotics in the ER. Vital signs are currently stable. Case management paged and awaiting to see patient. Patient be treated with clindamycin p.o. until case management evaluation, which is suspected to see patient on Monday. Critical care attestation.: If time is entered above; I have spent that time in minutes in the direct care of this critically ill patient, excluding procedure time. ED Disposition Clinical Impression: Bilateral lower leg cellulitis Disposition: TO HOME OR SELFCARE Is pt being admited?: No Does the pt Need Aspirin: No Condition: Stable Instructions: Cellulitis, Adult Referrals: PRIMARY CARE, [Primary Care Provider] - 3-5 Days
[2020-11-05 13:07] LABS: Basophils % (Auto) 0.4 % (0.0-1.8); Eosinophils # (Auto) 0.2 K/mm3 (0.0-0.4); Eosinophils % (Auto) 3.5 % (0.0-4.3); Hematocrit 35.2 % (30.3-42.9); Hemoglobin 11.6 gm/dl (10.1-14.3); Lymphocytes # (Auto) 1.9 K/mm3 (1.2-5.4); Lymphocytes % (Auto) 30.4 % (13.4-35.0); Mean Corpuscular HGB Conc 33 % (30-34); Mean Corpuscular Volume 86 fl (79-97); Monocytes # (Auto) 0.6 K/mm3 (0.0-0.8); Monocytes % (Auto) 9.6 % (0.0-7.3); Platelet Count 281 K/mm3 (140-440); Red Blood Count 4.08 M/mm3 (3.65-5.03); Red Cell Distribution Width 15.9 % (13.2-15.2)
[2020-11-05 13:16] LABS: Alanine Aminotransferase 17 units/L (7-56); Albumin 3.3 g/dL (3.9-5); Blood Urea Nitrogen 23 mg/dL (7-17); Calcium 9.3 mg/dL (8.4-10.2); Hemolysis Index 9
[2020-11-05 13:28] LABS: BUN/Creatinine Ratio 58
--- NOTE | 2020-11-05 17:32 | Event Note ---
Date: 11/05/20 Pt does not meet admission criteria. No leukocytosis, fever. recommend wound care, wound dressing and oral antibiotic therapy. Outpatient wound care. ED team informed of recommendation. Case management notification.
[2020-11-06] MEDS ORDERED: CLINDAMYCIN 300 MG CAP PO SCH (07:00)
[2020-11-06] MEDS: CLINDAMYCIN 300 MG CAP PO SCH ×3 (07:30→23:35)
[2020-11-07] MEDS: CLINDAMYCIN 300 MG CAP PO SCH ×2 (13:19→16:22)
[2020-11-08] MEDS: CLINDAMYCIN 300 MG CAP PO SCH ×2 (11:03→23:54)
[2020-11-09] MEDS: CLINDAMYCIN 300 MG CAP PO SCH ×4 (08:00→22:44)
[2020-11-10] MEDS: CLINDAMYCIN 300 MG CAP PO SCH ×3 (08:00→22:34)
--- NOTE | 2020-11-10 16:01 | Emergency Department Report ---
Blank Doc - Documentation Documentation: Case management requests COVID test for placement. COVID test ordered.
--- NOTE | 2020-11-10 16:41 | XRay Report ---
CHEST 1 VIEW 11/10/2020 3:34 PM INDICATION / CLINICAL INFORMATION: placement. COMPARISON: None available. FINDINGS: SUPPORT DEVICES: None. HEART / MEDIASTINUM: No significant abnormality. LUNGS / PLEURA: No significant pulmonary or pleural abnormality. No pneumothorax. ADDITIONAL FINDINGS: No significant additional findings. IMPRESSION: 1. No acute findings. Signer Name: Sesar Dejesus MD Signed: 11/10/2020 4:36 PM Workstation Name: [id number]
[2020-11-10] MEDS: APIXABAN 5 MG TAB PO SCH (22:09)
[2020-11-11] MEDS: CLINDAMYCIN 300 MG CAP PO SCH ×2 (07:00→15:03)
[2020-11-11 07:57] VITALS: BP 182/62
[2020-11-11] MEDS: APIXABAN 5 MG TAB PO SCH (10:21)
--- NOTE | 2020-11-11 15:43 | Emergency Department Report ---
Blank Doc - Documentation Documentation: The patient was offered placement in a personal residential but she refuses. The patient states she would prefer to go to [place] and [place].
== END 2020-11-11 18:20 | disposition home or self-care (01) ==
LOC: ED 20:13
DX: L03.116 Cellulitis of left lower limb (principal); Z20.828 Contact with and (suspected) exposure to other viral communicable diseases; L03.115 Cellulitis of right lower limb; I10 Essential (primary) hypertension; Z79.899 Other long term (current) drug therapy; Z88.6 Allergy status to analgesic agent
CPT/HCPCS: 36415; 71045; 73560; 80053; 82140; 85025; 87076; 87116; 87186; 96365; 99285; U0003